=== PATIENT | female | born 1955 | race Caucasian/White ===

== ENCOUNTER 2020-02-04 11:07 | Outpatient (REF) | payer MEDICARE, SELFPAY ==
[2020-02-04 13:28] LABS: Estimated Average Glucose 140 mg/dL; Hemoglobin A1c % 6.5 %
[2020-02-04 13:47] LABS: Alanine Aminotransferase 9 U/L (0-31); Anion Gap 10 (12-20); Aspartate Amino Transferase 17 U/L (5-31); Blood Urea Nitrogen 22 mg/dL (9-16); Calcium 8.8 mg/dL (8.4-10.2); Carbon Dioxide 32 mmol/L (22-29); Chloride 105 mmol/L (96-108); Cholesterol 167 mg/dL; Estimated Glomerular Filt Rate > 60; Glucose Fasting 67 mg/dL (60-99); HDL Cholesterol 77 mg/dL; LDL Cholesterol Calculated 80 mg/dl; Potassium 4.4 mmol/l (3.3-5.1); Sodium 143 mmol/L (135-145); Triglycerides 50 mg/dL
[2020-02-04 14:08] LABS: Free T4 (Free Thyroxine) 0.95 ng/dL (0.71-1.85); Thyroid Stimulating Hormone 2.55 mIU/mL (0.32-4.0); Vitamin D 25-OH Total 41.6 ng/mL (>30)
[2020-02-04 14:12] LABS: Microalbumin Urine < 5.0 mg/L
== END 2020-02-04 11:08 | disposition home or self-care (01) ==
LOC: HO.LAB 11:07
PROVIDERS: PCP Internal Medicine; Visit Provider Internal Medicine
DX: E03.9 Hypothyroidism, unspecified (principal); E78.5 Hyperlipidemia, unspecified; M85.80 Other specified disorders of bone density and structure, unspecified site; E10.9 Type 1 diabetes mellitus without complications
CPT/HCPCS: 80048; 80061; 82043; 82306; 83036; 84439; 84443; 84450; 84460

== ENCOUNTER 2020-06-22 16:47 | Outpatient (REF) | payer MEDICARE, SELFPAY ==
[2020-06-22 18:29] LABS: Estimated Average Glucose 148 mg/dL; Hemoglobin A1c % 6.8 %
== END 2020-06-22 16:48 | disposition home or self-care (01) ==
LOC: HO.LABR 16:47
PROVIDERS: PCP Internal Medicine; Visit Provider Pediatrics
DX: E10.65 Type 1 diabetes mellitus with hyperglycemia (principal)
CPT/HCPCS: 36415; 83036

== ENCOUNTER 2020-08-26 10:31 | Outpatient (REF) | payer MEDICARE, SELFPAY ==
[2020-08-26 13:29] LABS: Alanine Aminotransferase 12 U/L (0-31); Anion Gap 10 (12-20); Aspartate Amino Transferase 17 U/L (5-31); Blood Urea Nitrogen 16 mg/dL (9-16); Calcium 8.8 mg/dL (8.4-10.2); Carbon Dioxide 30 mmol/L (22-29); Chloride 106 mmol/L (96-108); Cholesterol 156 mg/dL; Estimated Glomerular Filt Rate > 60; Glucose Fasting 99 mg/dL (60-99); HDL Cholesterol 74 mg/dL; LDL Cholesterol Calculated 76 mg/dl; Potassium 4.3 mmol/L (3.3-5.1); Sodium 142 mmol/L (135-145); Triglycerides 31 mg/dL
[2020-08-26 13:48] LABS: Free T4 (Free Thyroxine) 0.98 ng/dL (0.71-1.85); Thyroid Stimulating Hormone 1.31 uIU/mL (0.32-4.0); Vitamin D 25-OH Total 36.6 ng/mL (>30)
== END 2020-08-26 10:32 | disposition home or self-care (01) ==
LOC: HO.LAB 10:31
PROVIDERS: PCP Internal Medicine; Visit Provider Internal Medicine
DX: E03.9 Hypothyroidism, unspecified (principal); E78.5 Hyperlipidemia, unspecified; M85.88 Other specified disorders of bone density and structure, other site; I10 Essential (primary) hypertension; Z78.0 Asymptomatic menopausal state
CPT/HCPCS: 36415; 80048; 80061; 82306; 84439; 84443; 84450; 84460

== ENCOUNTER 2020-11-19 14:05 | Outpatient (REF) | payer MEDICARE, SELFPAY ==
[2020-11-19 14:52] LABS: Estimated Average Glucose 146 mg/dL; Hemoglobin A1c % 6.7 %
== END 2020-11-19 14:06 | disposition home or self-care (01) ==
LOC: HO.LABR 14:05
PROVIDERS: PCP Internal Medicine; Visit Provider Pediatrics
DX: E10.65 Type 1 diabetes mellitus with hyperglycemia (principal)
CPT/HCPCS: 36415; 83036

== ENCOUNTER 2021-03-31 09:15 | Outpatient (REF) | payer MEDICARE, SELFPAY ==
[2021-03-31 09:32] LABS: MANUAL DIFF FLAG NO
[2021-03-31 09:53] LABS: Basophils Percent Auto 0.7 % (0-2); Eosinophils Absolute Auto 0.1 X10*3/uL (0.0-0.4); Eosinophils Percent Auto 2.3 % (0-4); Hematocrit 44.1 % (37.0-47.0); Hemoglobin 14.4 g/dl (12.0-16.0); Lymphocytes Absolute Auto 1.6 X10*3/uL (1.2-4.9); Lymphocytes Percent Auto 35.2 % (20-40); Mean Corpuscular HGB Conc 32.7 g/dl (31.0-35.0); Mean Corpuscular Hemoglobin 31.6 pg (27.0-33.0); Mean Corpuscular Volume 96.9 fL (80.0-98.0); Mean Platelet Volume 10.8 fL (9.4-12.3); Monocytes Absolute Auto 0.4 X10*3/uL (0.1-1.2); Monocytes Percent Auto 9.3 % (2-11); Neutrophils Absolute Auto 2.3 x10*3/uL (2.0-8.3); Neutrophils Percent Auto 52.5 % (45-73); Platelet Count 264 X10*3/uL (160-400); Red Blood Count 4.55 X10*6/uL (4.20-5.50); Red Cell Distribution Width 13.2 % (11.0-16.0); White Blood Count 4.4 X10*3/uL (4.8-10.8)
[2021-03-31 10:09] LABS: Estimated Average Glucose 154 mg/dL
[2021-03-31 10:30] LABS: Alanine Aminotransferase 12 U/L (0-31); Anion Gap 14 (12-20); Aspartate Amino Transferase 19 U/L (5-31); Blood Urea Nitrogen 15 mg/dL (9-16); Calcium 9.3 mg/dL (8.4-10.2); Carbon Dioxide 29 mmol/L (22-29); Chloride 104 mmol/L (96-108); Cholesterol 174 mg/dL; Estimated Glomerular Filt Rate > 60; Glucose Fasting 105 mg/dL (60-99); HDL Cholesterol 76 mg/dL; LDL Cholesterol Calculated 87 mg/dl; Potassium 4.6 mmol/L (3.3-5.1); Sodium 142 mmol/L (135-145); Triglycerides 59 mg/dL
[2021-03-31 10:41] LABS: Free T4 (Free Thyroxine) 1.03 ng/dL (0.71-1.85); Thyroid Stimulating Hormone 4.19 uIU/mL (0.32-4.0); Vitamin D 25-OH Total 34.5 ng/mL (>30)
[2021-03-31 10:59] LABS: Creatinine Urine 81.31 mg/dL; Microalbum/Creatinine Ratio Ur 12.2 ug/mg cr
== END 2021-03-31 09:16 | disposition home or self-care (01) ==
LOC: HO.LAB 09:15
PROVIDERS: Referring Provider Pediatrics; Visit Provider Internal Medicine
DX: E10.649 Type 1 diabetes mellitus with hypoglycemia without coma (principal); E03.9 Hypothyroidism, unspecified; E78.5 Hyperlipidemia, unspecified; M85.88 Other specified disorders of bone density and structure, other site; I10 Essential (primary) hypertension; Z78.0 Asymptomatic menopausal state
CPT/HCPCS: 36415; 80048; 80061; 82043; 82306; 83036; 84439; 84443; 84450; 84460; 85025

== ENCOUNTER 2021-08-31 13:25 | Outpatient (REF) | payer MEDICARE, SELFPAY ==
[2021-08-31 16:54] LABS: Estimated Average Glucose 137 mg/dL; Hemoglobin A1c % 6.4 %
== END 2021-08-31 13:26 | disposition home or self-care (01) ==
LOC: HO.HMGCLDS 13:25
PROVIDERS: PCP Internal Medicine; Visit Provider Pediatrics
DX: E10.649 Type 1 diabetes mellitus with hypoglycemia without coma (principal)
CPT/HCPCS: 36415; 83036

== ENCOUNTER 2021-09-15 09:51 | Outpatient (REF) | payer MEDICARE, SELFPAY ==
[2021-09-15 12:18] LABS: Alanine Aminotransferase 11 U/L (0-31); Anion Gap 10 (12-20); Aspartate Amino Transferase 17 U/L (5-31); Blood Urea Nitrogen 10 mg/dL (9-16); Calcium 9.1 mg/dL (8.4-10.2); Carbon Dioxide 31 mmol/L (22-29); Chloride 104 mmol/L (96-108); Cholesterol 164 mg/dL; Estimated Glomerular Filt Rate > 60; Glucose Fasting 90 mg/dL (60-99); HDL Cholesterol 72 mg/dL; LDL Cholesterol Calculated 85 mg/dl; Potassium 4.3 mmol/L (3.3-5.1); Sodium 141 mmol/L (135-145); Triglycerides 36 mg/dL
[2021-09-15 12:30] LABS: Free T4 (Free Thyroxine) 1.21 ng/dL (0.71-1.85); Vitamin D 25-OH Total 34.5 ng/mL (>30)
[2021-09-15 13:32] LABS: Creatinine Urine 49.44 mg/dL; Microalbumin Urine < 5.0 mg/L
== END 2021-09-15 09:52 | disposition home or self-care (01) ==
LOC: HO.LAB 09:51
PROVIDERS: PCP Internal Medicine; Referring Provider Pediatrics; Visit Provider Internal Medicine
DX: E03.9 Hypothyroidism, unspecified (principal); E10.9 Type 1 diabetes mellitus without complications; E78.5 Hyperlipidemia, unspecified; M85.88 Other specified disorders of bone density and structure, other site; Z78.0 Asymptomatic menopausal state
CPT/HCPCS: 36415; 80048; 80061; 82043; 82306; 84439; 84443; 84450; 84460

== ENCOUNTER 2022-01-09 16:27 | Outpatient (REF) | payer MEDICARE, SELFPAY ==
[2022-01-09 17:56] LABS: Estimated Average Glucose 134 mg/dL; Hemoglobin A1c % 6.3 %
== END 2022-01-09 16:28 | disposition home or self-care (01) ==
LOC: HO.LABR 16:27
PROVIDERS: PCP Internal Medicine; Visit Provider Pediatrics
DX: E10.649 Type 1 diabetes mellitus with hypoglycemia without coma (principal)
CPT/HCPCS: 36415; 83036

== ENCOUNTER 2022-03-30 11:17 | Outpatient (REF) | payer MEDICARE, SELFPAY ==
[2022-03-30 13:41] LABS: Alanine Aminotransferase 13 U/L (0-31); Anion Gap 10 (12-20); Aspartate Amino Transferase 19 U/L (5-31); Blood Urea Nitrogen 18 mg/dL (9-16); Calcium 9.2 mg/dL (8.4-10.2); Carbon Dioxide 31 mmol/L (22-29); Chloride 103 mmol/L (96-108); Cholesterol 186 mg/dL; Estimated Glomerular Filt Rate > 60; Glucose Fasting 108 mg/dL (60-99); HDL Cholesterol 85 mg/dL; LDL Cholesterol Calculated 91 mg/dl; Potassium 4.4 mmol/L (3.3-5.1); Sodium 140 mmol/L (135-145); Thyroid Stimulating Hormone 2.56 uIU/mL (0.32-4.0); Triglycerides 53 mg/dL
== END 2022-03-30 11:18 | disposition home or self-care (01) ==
LOC: HO.LAB 11:17
PROVIDERS: PCP Internal Medicine; Visit Provider Internal Medicine
DX: E03.9 Hypothyroidism, unspecified (principal); E78.5 Hyperlipidemia, unspecified; E10.9 Type 1 diabetes mellitus without complications
CPT/HCPCS: 36415; 80048; 80061; 84439; 84443; 84450; 84460

== ENCOUNTER 2022-04-27 07:51 | Outpatient (REF) | payer MEDICARE, SELFPAY ==
--- NOTE | 2022-04-27 07:58 | EMG_ITS ---
Right median and ulnar motor and sensory studies were performed. Right radial sensory study was performed and paraspinal muscles were tested with a needle. IMPRESSION: 1. 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 2. Mild right ulnar neuropathy across cubital tunnel. 3. Right Ajay Sherry anastomosis, a normal variant. MD GERALDO Fitzgerald/KENNETH / [id number]
== END 2022-04-27 07:52 | disposition home or self-care (01) ==
LOC: HO.NEURO 07:51
PROVIDERS: PCP Internal Medicine; Visit Provider Internal Medicine
DX: M79.641 Pain in right hand (principal); M79.642 Pain in left hand
CPT/HCPCS: 95886; 95909

== ENCOUNTER 2022-04-27 08:27 | Outpatient (REF) | payer MEDICARE, SELFPAY ==
[2022-04-27 10:56] LABS: Estimated Average Glucose 157 mg/dL; Hemoglobin A1c % 7.1 %
== END 2022-04-27 08:28 | disposition home or self-care (01) ==
LOC: HO.LAB 08:27
PROVIDERS: PCP Internal Medicine; Visit Provider Pediatrics
DX: E10.9 Type 1 diabetes mellitus without complications (principal)
CPT/HCPCS: 36415; 83036

== ENCOUNTER 2022-08-18 12:24 | Outpatient (REF) | payer MEDICARE, SELFPAY ==
[2022-08-18 14:26] LABS: Estimated Average Glucose 151 mg/dL; Hemoglobin A1c % 6.9 %
== END 2022-08-18 12:25 | disposition home or self-care (01) ==
LOC: HO.HMGCLDS 12:24
PROVIDERS: PCP Internal Medicine; Visit Provider Pediatrics
DX: R10.9 Unspecified abdominal pain (principal)
CPT/HCPCS: 36415; 83036

== ENCOUNTER 2022-09-18 11:15 | Outpatient (REF) | payer MEDICARE, SELFPAY ==
[2022-09-18 14:49] LABS: Alanine Aminotransferase 12 U/L (0-31); Aspartate Amino Transferase 18 U/L (5-31); Cholesterol 163 mg/dL; HDL Cholesterol 70 mg/dL; LDL Cholesterol Calculated 85 mg/dl; Triglycerides 40 mg/dL
[2022-09-18 14:50] LABS: Vitamin D 25-OH Total 51.4 ng/mL (>30)
== END 2022-09-18 11:16 | disposition home or self-care (01) ==
LOC: HO.HMGCLDS 11:15
PROVIDERS: PCP Internal Medicine; Visit Provider Internal Medicine
DX: E78.5 Hyperlipidemia, unspecified (principal); M85.88 Other specified disorders of bone density and structure, other site; E03.9 Hypothyroidism, unspecified; Z78.0 Asymptomatic menopausal state
CPT/HCPCS: 36415; 80061; 82306; 84443; 84450; 84460

== ENCOUNTER 2022-09-18 11:52 | Outpatient (REF) | payer MEDICARE, SELFPAY | END 2022-09-18 11:53 | disposition home or self-care (01) | LOC: HO.LAB 11:52 | PROVIDERS: Visit Provider Internal Medicine | DX: Z13.89 Encounter for screening for other disorder (principal) ==

== ENCOUNTER 2022-09-21 12:59 | Outpatient (REF) | payer MEDICARE, SELFPAY ==
[2022-09-21 15:09] LABS: Creatinine Urine 74.48 mg/dL; Microalbumin Urine < 5.0 mg/L
== END 2022-09-21 13:00 | disposition home or self-care (01) ==
LOC: HO.HMGCLDS 12:59
PROVIDERS: PCP Internal Medicine; Visit Provider Internal Medicine
DX: E10.9 Type 1 diabetes mellitus without complications (principal)
CPT/HCPCS: 82043

== ENCOUNTER 2022-12-27 14:29 | Outpatient (REF) | payer MEDICARE, SELFPAY ==
[2022-12-27 15:37] LABS: Estimated Average Glucose 134 mg/dL; Hemoglobin A1c % 6.3 % (<6.0)
== END 2022-12-27 14:30 | disposition home or self-care (01) ==
LOC: HO.LAB 14:29
PROVIDERS: PCP Internal Medicine; Visit Provider Pediatrics
DX: E10.9 Type 1 diabetes mellitus without complications (principal)
CPT/HCPCS: 36415; 83036

== ENCOUNTER 2023-03-30 06:05 | Outpatient (REF) | payer MEDICARE, SELFPAY ==
[2023-03-30 07:40] LABS: Alanine Aminotransferase 12 U/L (0-31); Albumin Level 4.4 g/dL (3.5-5.0); Alkaline Phosphatase 59 U/L (39-117); Anion Gap 11 (12-20); Aspartate Amino Transferase 20 U/L (5-31); Bilirubin Total 1.2 mg/dL (0.0-1.0); Blood Urea Nitrogen 17 mg/dL (9-16); Calcium 9.2 mg/dL (8.4-10.2); Carbon Dioxide 31 mmol/L (22-29); Chloride 104 mmol/L (96-108); Cholesterol 183 mg/dL (<200); Estimated Glomerular Filt Rate > 60; Glucose Fasting 93 mg/dL (60-99); HDL Cholesterol 82 mg/dL (>40); LDL Cholesterol Calculated 90 mg/dL (<100); Potassium 4.1 mmol/L (3.3-5.1); Sodium 142 mmol/L (135-145); Total Protein 7.6 g/dL (6.5-8.0); Triglycerides 58 mg/dL (<150)
[2023-03-30 08:00] LABS: Free T4 (Free Thyroxine) 0.93 ng/dL (0.71-1.85); Thyroid Stimulating Hormone 6.51 uIU/mL (0.32-4.0); Vitamin D 25-OH Total 47.5 ng/mL (>30)
== END 2023-03-30 06:06 | disposition home or self-care (01) ==
LOC: HO.LAB 06:05
PROVIDERS: PCP Internal Medicine; Visit Provider Internal Medicine
DX: E10.9 Type 1 diabetes mellitus without complications (principal); M85.88 Other specified disorders of bone density and structure, other site; E78.5 Hyperlipidemia, unspecified; E03.9 Hypothyroidism, unspecified; Z78.0 Asymptomatic menopausal state
CPT/HCPCS: 36415; 80053; 80061; 82306; 84439; 84443

== ENCOUNTER 2023-04-03 10:41 | Outpatient (AMB) | payer MEDICARE, SELFPAY ==
[2023-04-03 11:11] VITALS: BP 110/80; PULSE 71; O2SAT 98; BMI 28.8
--- NOTE | 2023-04-03 11:11 | A.OFFPC_ITS ---
Vital Signs 04/03/23 11:11 Height 5 ft 6.5 in Weight 181 lb 6 oz BMI 28.8 BP 110/80 Blood Pressure Location Lt brachial Position Sitting Pulse 71 Pulse Source Pulse Oximeter Pulse Oximetry (%) 98 Oxygen Delivery Method Room Air Intake Visit Reasons: 6m follow up lipids,thyroid Intake Note: Pt is here to follow up for her lab results Allergies gentamicin Adverse Reaction (Verified 04/03/23 11:23) rash Medication List - Last Reconciled 04/03/23 by Bushra Patino MD ascorbic acid (vitamin C) mg PO calcium carbonate 500 mg PO DAILY cholecalciferol (vitamin D3) 25 mcg PO DAILY clobetasol 0.05% 1 appl topical BID insulin glargine (Lantus U-100 Insulin) 13 units subcut every evening; insulin lispro (Humalog KwikPen (U-100) Insulin) subcut levothyroxine 50 mcg PO Take 1 tab 5 days per week, 1.5 tabs 2 days per week; lutein 20 mg PO DAILY multivitamin 1 tab PO DAILY omega-3 fatty acids (Fish Oil Concentrate) 1,000 mg PO DAILY pravastatin 80 mg PO BEDTIME vhlntcb-zfgt-tikrj-oreg-capryl 100 mg-150 mg- 50 mg-150 mg caps PO Tobacco use date assessed: 04/03/23 Fall risk assessment: No Falls in past year Last assessed Fall Risk: 04/03/23 Dental Screening Dental Screen Date: 04/03/23 Did you have a dental visit in the last 12 months?: Yes Did you have a dental problem in the last 6 months where you did not have access to dental care?: No Was dental information given to patient?: Patient has dentist HPI 6m follow up lipids,thyroid HPI Details 67-year-old lady with diabetes mellitus, currently followed by endocrine clinic at [facility], here today for follow-up on her hyperlipidemia and hypothyroidism. Has been compliant with taking medications, feels well with no new complaints at present time. [facility] Medical History Ulnar neuropathy at elbow of right upper extremity Right median nerve neuropathy Bilateral hand pain Menopause Osteoarthritis of right hip Osteoarthritis of both knees Psoriasis Internal hemorrhoids Sigmoid diverticulosis Acquired hypothyroidism Osteopenia of lumbar spine Dyslipidemia Diabetes mellitus type 1, controlled Surgical History History of carpal tunnel surgery of right wrist History of hip replacement History of colonoscopy Family History Father Kidney stones Mother Bladder cancer CAD (coronary artery disease) Kidney stones CVD (cardiovascular disease) Daughter Cancer of thyroid Brother No problems noted. Daughter No problems noted. Daughter No problems noted. Sister No problems noted. Sister No problems noted. Sister No problems noted. Social History Housing: House Alcohol intake: current Patient Tobacco Use Status: Former Tobacco user Years Smoked: 2 yrs e-Cigarette/Vaping Use: Never Used service: No Current occupational status: retired Cognitive needs: No Hearing needs: No Vision needs: No Questionnaire PHQ-9 Over the last 2 weeks, how often have you been bothered by any of the following problems? Depression Screening Interpretation: Negative Depression Screening Done: Yes Source: Developed by Drs. Logan Larios, Liza Hagen, Marshall Chan and colleagues, with an educational julianne from [employer]. Thrive Questionnaire Date Thrive assessed: 09/21/22 MAUREEN-7 AMB Questionnaire MAUREEN-7 Date MAUREEN - 7 assessed: 09/20/21 Source: Developed by Drs. Logan Larios, Liza Hagen, Marshall Chan and colleagues, with an educational julianne from [employer]. Review of Systems Const Denies fatigue, Denies fever(s), Denies headache(s) and Denies weakness Eyes Details: 02/05/[address] Luke Ryan - no retinopathy coma no glaucoma Denies change in vision ENT Denies dizziness, Denies headache(s), Denies nasal congestion, Denies nasal discharge and Denies sore throat Card Denies chest pain, Denies lightheadedness, Denies palpitations and Denies dyspnea Resp Denies chest congestion, Denies cough, Denies dyspnea and Denies wheezing GI Denies abdominal pain, Denies change in bowel habits and Denies heartburn Denies urinary frequency, Denies dysuria and Denies urinary urgency Musc Reports as per HPI, Denies joint swelling and Reports stiffness Skin/Breast Denies lesions and Denies rash Neuro Denies dizziness, Denies headache(s) and Denies weakness Endo Details: Hemoglobin A1c 6.3 - 12/27/[address] Sandoval for diabetic foot exam in 2021, no neuropathy, positive hammertoe Denies fatigue, Denies polydipsia, Denies polyuria and Denies palpitations Mario/Lymph Denies easy bruising Aller/Immun Denies seasonal rhinorrhea and Denies wheezing Physical exam (Primary Care) Vital Signs: Last Vital Signs Pulse 71 04/03/23 11:11 BP 110/80 04/03/23 11:11 Pulse Ox 98 04/03/23 11:11 Oxygen Delivery Method Room Air 04/03/23 11:11 BMI result Body Mass Index 28.8 Tobacco/Smoking Status: Tobacco use Status Tobacco use date assessed 04/03/23 04/03/23 11:17 Patient Tobacco Use Status Former Tobacco user 04/03/23 11:11 e-Cigarette/Vaping Use Never Used 04/03/23 11:11 Depression Screening Interpretation: Negative Thrive Assessment: Date of Thrive Assessment Date Thrive assessed 09/21/22 04/03/23 11:11 Const General: comfortable and no acute distress Orientation/consciousness: patient oriented x3 HENMT Ears: external ears normal General nose exam: Normal external nose present and No nasal discharge present Mouth: moist mucous membranes Throat: Yes posterior oropharynx normal Eyes General: appearance normal, both eyes and all related structures Conjunctivae: conjunctivae normal Pupils: Equal, round and reactive pupils present EOM: EOMs intact bilaterally Neck Other: Thyroid gland nonpalpable, nontender to palpation Neck: Yes full ROM, Yes no lymphadenopathy and Yes supple Resp Effort & Inspection: normal respiratory effort and able to speak in complete sentences Auscultation: clear to auscultation bilaterally Cardio Rate: regular rate Rhythm: regular rhythm Heart sounds: S1 normal heart sound present and S2 normal heart sound present GI Palpation (GI): Soft to palpation and nontender Auscultation: normal bowel sounds Neuro General: patient oriented x3, gait normal, tone normal, moves all extremities, Normal light touch and pain sensation and no focal motor deficits Cranial nerves: Yes Equal, round and reactive pupils present Cognition (Neuro): normal cognition Gait exam (Neuro): Normal gait present Motor exam (neuro): 5/5 motor strength present throughout Extrem Other: Positive Tinel sign on the right, negative Phalen's General: Yes full ROM, Yes no joint enlargement, Yes no pedal edema and Yes normal gait Results Reviewed Results Reviewed: NTERED: 03/30/23 ANANYA CONNER: ORDERED: CMP Fast, Lipid Panel, Vitamin D 25-OH, Free T4, TSH Test Result Flag Reference Site Sodium 142 135-145 mmol/L Potassium 4.1 3.3-5.1 mmol/L CL 104 96-108 mmol/L CO2 31 H 22-29 mmol/L Gap 11 L 12-20 BUN 17 H 9-16 mg/dL Creat 0.82 0.5-1.4 mg/dL EGFR > 60 NOTE: For -Namibian individuals, multiply the result by 1.210. Chronic Kidney Disease: Estimated GFR < 60 mL/min/1.73m2 Severe Kidney Disease: Estimated GFR < 15 mL/min/1.73m2 FBS 93 60-99 mg/dL CA 9.2 8.4-10.2 mg/dL Total Bili 1.2 H 0.0-1.0 mg/dL AST (GOT) 20 5-31 U/L ALT (GPT) 12 0-31 U/L Protein, Total 7.6 6.5-8.0 g/dL Alb 4.4 3.5-5.0 g/dL Triglyceride 58 <150 mg/dL Desirable Triglyceride: less than 150 mg/dL Borderline High Triglyceride 150-199 mg/dL High Triglyceride: 200-499 mg/dL Very High Triglyceride: greater than or equal to 5OO mg/dL Cholesterol 183 <200 mg/dL Desirable Cholesterol: less than 200 mg/dL Borderline High Cholesterol: 200-239 mg/dL High Cholesterol: greater than 239 mg/dL LDL Calculated 90 <100 mg/dL Desirable LDL: less than 100 mg/dL Near Optimal/Above Optimal LDL: 110-129 mg/dL Borderline High LDL: 130-159 mg/dL High LDL: 160-189 mg/dL Very High LDL: greater than or equal to 190 mg/dL HDL 82 >40 mg/dL Desirable HDL: greater than 40 mg/dL Note: This HDL assay may give artificially low results in patients with liver disease. Alk Phos 59 39-117 U/L Vit D 25-OH Tot 47.5 >30 ng/mL Health Based Reference Values* < 20 ng/mL Deficient 20-30 ng/mL Insufficient > 30 ng/mL Sufficient *Holick MF. N Engl J Med. 2007;357:266-280 Care must be taken in interpreting Vitamin D results from different laboratories and methodologies. Published data demonstrated that results from patients undergoing hemodialysis may show a negative bias when tested with various automated 25-OH vitamin D assays when compared to LC-MS/MS. When testing samples from patients whose predominant form of Vitamin D is Vitamin D2, such as patients receiving Vitamin D2 supplementation, results that are subtherapeutic should be confirmed with another method such as LC-MS/MS. Free T4 0.93 0.71-1.85 ng/dL TSH 3rd Gen. 6.51 H 0.32-4.0 uIU/mL Note: A sustained TSH level above 2.5 uIU/mL may warrant further investigation. TSH 3rd Generation ([facility]) Assessment and Plan Assessment & Plan (1) Acquired hypothyroidism: Code(s): E03.9 - Hypothyroidism, unspecified Plan: TSH elevated with free T4 low normal, Increase levothyroxine dose to 50 al ternating with 7.5 mg every other day and repeat another TSH and free T4 in 2 months (2) Dyslipidemia: Code(s): E78.5 - Hyperlipidemia, unspecified Plan: Reviewed recent fasting lipid profile with patient with levels within normal limits . Continue with [place] 3 fatty acid supplements and pravastatin , in addition to adherence to low-cholesterol diet and regular exercise, at least 30 minutes 3 to 4 times a week. Advised patient to make healthy food choices, eat more fruits, vegetables, whole grains, wild caught fish and low-fat dairy. Limit amount of meat and fried or fatty food products, as well as processed foods and fast foods. Orders: Orders Free T4 (Free Thyroxine) 05/17/23 E03.9 - Hypothyroidism, unspecified Thyroid Stimulating Hormone 05/17/23 E03.9 - Hypothyroidism, unspecified Patient Instructions: Increase levothyroxine dose to 50 alternating with 7.5 mg every other day and repeat another TSH and free T4 in 2 months Coding Level of Care Code Est Pt Level 3 (49965) Diagnoses Acquired hypothyroidism E03.9 Dyslipidemia E78.5
== END 2023-04-03 12:01 | disposition home or self-care (01) ==
PROVIDERS: PCP Internal Medicine; Visit Provider Internal Medicine
DX: E03.9 Hypothyroidism, unspecified (principal); E78.5 Hyperlipidemia, unspecified
CPT/HCPCS: 99213

== ENCOUNTER 2023-09-20 11:15 | Outpatient (REF) | payer MEDICARE, SELFPAY ==
[2023-09-20 12:33] LABS: Alanine Aminotransferase 12 U/L (0-31); Aspartate Amino Transferase 18 U/L (5-31); Cholesterol 175 mg/dL (<200); HDL Cholesterol 76 mg/dL (>40); LDL Cholesterol Calculated 90 mg/dL (<100); Triglycerides 45 mg/dL (<150)
[2023-09-20 12:54] LABS: Free T4 (Free Thyroxine) 0.91 ng/dL (0.71-1.85); Vitamin D 25-OH Total 52.4 ng/mL (>30)
== END 2023-09-20 11:16 | disposition home or self-care (01) ==
LOC: HO.LAB 11:15
PROVIDERS: PCP Internal Medicine; Visit Provider Internal Medicine
DX: E03.9 Hypothyroidism, unspecified (principal); E78.5 Hyperlipidemia, unspecified; M85.88 Other specified disorders of bone density and structure, other site; Z78.0 Asymptomatic menopausal state
CPT/HCPCS: 36415; 80061; 82306; 84439; 84443; 84450; 84460

== ENCOUNTER 2023-09-24 12:07 | Outpatient (AMB) | payer MEDICARE, SELFPAY ==
--- NOTE | 2023-09-24 12:13 | A.OFFPC_ITS ---
Vital Signs 09/24/23 12:30 Height 5 ft 6.5 in Weight 173 lb BMI 27.5 BP 118/68 Blood Pressure Location Lt brachial Position Sitting Pulse 73 Pulse Source Pulse Oximeter Pulse Oximetry (%) 96 Oxygen Delivery Method Room Air Intake Visit Reasons: PE - see comments Intake Note: Pt is here today for her PE: Last mammogram 04/26/23, bone density 08/31/22, 10/07/18 Allergies gentamicin Adverse Reaction (Verified 09/24/23 12:51) rash Medication List - Last Reconciled 09/24/23 by Bushra Patino MD ascorbic acid (vitamin C) mg PO calcium carbonate 500 mg PO DAILY cholecalciferol (vitamin D3) 25 mcg PO DAILY clobetasol 0.05% 1 appl topical BID insulin glargine (Lantus U-100 Insulin) 13 units subcut every evening; insulin lispro (Humalog KwikPen (U-100) Insulin) subcut levothyroxine 50 mcg PO Take 1 tab 3 days per week, 1.5 tabs 4 days per week; lutein 20 mg PO DAILY multivitamin 1 tab PO DAILY omega-3 fatty acids (Fish Oil Concentrate) 1,000 mg PO DAILY pravastatin 80 mg PO BEDTIME hqvkfwze-mcnu-gtuqd-oreg-capry 100 mg-150 mg- 50 mg-150 mg caps PO Tobacco use date assessed: 09/24/23 Fall risk assessment: No Falls in past year Last assessed Fall Risk: 09/24/23 Dental Screening Dental Screen Date: 09/24/23 Did you have a dental visit in the last 12 months?: Yes Did you have a dental problem in the last 6 months where you did not have access to dental care?: No Was dental information given to patient?: Patient has dentist HPI PE - see comments HPI Details 68-year-old lady here today for her phys ical exam. She had her last mammogram 04/26/23, bone density 08/31/22, both of which came back with normal findings. Up-to-date with her screening colonoscopy done by Dr. Hardwick in 2018, with normal findings, repeat due again in 2028. She is diabetes mellitus currently followed by [facility], Dr. Grijalva. Has hypothyroidism currently on levothyroxine and hyperlipidemia currently on pravastatin with recent fasting labs showing thyroid and lipid levels within normal limits. 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 Daughter No problems noted. Daughter No problems noted. Sister No problems noted. Sister No problems noted. Sister No problems noted. Social History Housing: House Alcohol intake: current Patient Tobacco Use Status: Former Tobacco user Years Smoked: 2 yrs e-Cigarette/Vaping Use: Never Used service: No Current occupational status: retired Cognitive needs: No Hearing needs: No Vision needs: No Questionnaire PHQ-9 Over the last 2 weeks, how often have you been bothered by any of the following problems? 1. Little interest or pleasure in doing things: not at all 2. Feeling down, depressed, or hopeless: not at all 3. Trouble falling or staying asleep, or sleeping too much: not at all 4. Feeling tired or having little energy: not at all 5. Poor appetite or overeating: not at all 6. Feeling bad about yourself - or that you are a failure or have let yourself or your family down: not at all 7. Trouble concentrating on things, such as reading the newspaper or watching television: not at all 8. Moving or speaking so slowly that other people could have noticed. Or the opposite - being so fidgety or restless that you have been moving around a lot more than usual: not at all 9. Thoughts that you would be better off or of hurting yourself in some way: not at all Total score: 0 Depression Screening Interpretation: Negative Depression Screening Done: Yes 06079 - PHQ-9 Billing: Yes Source: Developed by Drs. Logan Larios, Liza Hagen, Marshall Chan and colleagues, with an educational julianne from [employer]. Thrive Questionnaire Date Thrive assessed: 09/24/23 I am a: Patient What is your living situation today?: I have a steady place to live Within the past 12 months, did the food you bought not last and you didn't have the money to get more?: Never true Within the past 12 months, did you worry whether your food would run out before you got money to buy more?: Never true Do you have trouble paying for medicines?: No Do you have trouble getting transportation to medical appointments?: No Do you have trouble paying your heating and electricity bill?: No Do you have trouble taking care of your child, family member or friend?: No Do you have trouble with day-to-day activities such as bathing, preparing meals, shopping, managing finances, etc.?: No Are you currently unemployed and looking for a job?: No Are you interested in more education?: No Please select the resources that you would like help with: None THRIVE Score: 0 AUDIT C Alcohol Use Questionnaire (AUDIT-C) 1. How often do you have a drink containing alcohol?: 4 or more times a week 2. How many drinks containing alcohol do you have on a typical day when you are drinking?: 1 or 2 3. How often do you have six or more drinks on one occasion?: Never Total Score: 4 MAUREEN-7 AMB Questionnaire MAUREEN-7 Date MAUREEN - 7 assessed: 09/24/23 Feeling nervous, anxious, or on edge: 0 = Not at all Not being able to stop or control worryin = Not at all Worrying too much about different things: 0 = Not at all Trouble relaxin = Not at all Being so restless that it is hard to sit still: 0 = Not at all Becoming easily annoyed or irritable: 0 = Not at all Feeling afraid as if something awful might happen: 0 = Not at all Total MAUREEN-7 score (0-4 normal; 5-9 mild; 10-14 moderate; 15-21 severe): 0 Source: Developed by Liza Eldridge Kurt Kroenke and colleagues, with an educational julianne from [employer]. MAUREEN-7 Assessment Billing MAUREEN-7 Assessment Tool: MAUREEN-7 Assessment 18316 Review of Systems Const Denies fatigue, Denies fever(s), Denies headache(s) and Denies weakness Eyes Details: 02/05/[address] Luke Ryan - no retinopathy coma no glaucoma Denies change in vision ENT Denies dizziness, Denies headache(s), Denies nasal congestion, Denies nasal discharge and Denies sore throat Card Denies chest pain, Denies lightheadedness, Denies palpitations and Denies dyspnea Resp Denies chest congestion, Denies cough, Denies dyspnea and Denies wheezing GI Denies abdominal pain, Denies change in bowel habits and Denies heartburn Denies urinary frequency, Denies dysuria and Denies urinary urgency Musc Reports as per HPI, Denies joint swelling and Reports stiffness Skin/Breast Denies lesions and Denies rash Neuro Denies dizziness, Denies headache(s) and Denies weakness Endo Details: Hemoglobin A1c 6.3 - 12/27/[address] Sandoval for diabetic foot exam in 2021, no neuropathy, positive hammertoe Denies fatigue, Denies polydipsia, Denies polyuria and Denies palpitations Mario/Lymph Denies easy bruising Aller/Immun Denies seasonal rhinorrhea and Denies wheezing Physical exam (Primary Care) Vital Signs: Last Vital Signs Pulse 73 09/24/23 12:30 BP 118/68 09/24/23 12:30 Pulse Ox 96 09/24/23 12:30 Oxygen Delivery Method Room Air 09/24/23 12:30 BMI result Body Mass Index 27.5 Tobacco/Smoking Status: Tobacco use Status Tobacco use date assessed 09/24/23 09/24/23 12:36 Patient Tobacco Use Status Former Tobacco user 09/24/23 12:15 e-Cigarette/Vaping Use Never Used 09/24/23 12:15 PHQ-9: PHQ-9 Score PHQ-9: Total score 0 09/24/23 12:56 Depression Screening Interpretation: Negative Thrive Assessment: Date of Thrive Assessment Date Thrive assessed 09/24/23 09/24/23 12:37 Const General: comfortable and no acute distress Orientation/consciousness: patient oriented x3 HENMT Ears: external ears normal General nose exam: Normal external nose present and No nasal discharge present Mouth: moist mucous membranes Throat: Yes posterior oropharynx normal Eyes General: appearance normal, both eyes and all related structures Conjunctivae: conjunctivae normal Pupils: Equal, round and reactive pupils present EOM: EOMs intact bilaterally Neck Other: Thyroid gland nonpalpable, nontender to palpation Neck: Yes full ROM, Yes no lymphadenopathy and Yes supple Resp Effort & Inspection: normal respiratory effort and able to speak in complete sentences Auscultation: clear to auscultation bilaterally Cardio Rate: regular rate Rhythm: regular rhythm Heart sounds: S1 normal heart sound present and S2 normal heart sound present GI Palpation (GI): Soft to palpation and nontender Auscultation: normal bowel sounds General: Yes no CVA tenderness Back/Spine/Pelvis Back: no CVA tenderness and No back tenderness Skin General skin exam: no rashes or lesions noted Neuro General: patient oriented x3, gait normal, tone normal, moves all extremities, Normal light touch and pain sensation and no focal motor deficits Cranial nerves: Yes Equal, round and reactive pupils present Cognition (Neuro): normal cognition Gait exam (Neuro): Normal gait present Motor exam (neuro): 5/5 motor strength present throughout Extrem Other: Positive Tinel sign on the right, negative Phalen's General: Yes full ROM, Yes no joint enlargement, Yes no pedal edema and Yes normal gait Psych Appearance: grossly normal and well kempt Mental Status: mental status grossly normal Speech and movement: Normal speech and movement present Affect: normal affect Thought process: Normal thought process present Thought content: Normal thought content present Results Reviewed Results Reviewed: Name: Mary Kay Hester Age/Sex: 68/F : 1955 Unit#: [id number] Attend Dr: Bushra Patino MD Re09/20/23 Status: DEP REF Location: .LAB Disch: SPEC : [id number] ASHOK: 09/20/23 STATUS: COMP REQ : [id number] RECD: 09/20/[address]: Bushra Paitno MD COMP: 09/20/234 ENTERED: 09/20/[address]: ORDERED: AST, ALT, Lipid Panel, Vitamin D 25-OH, Free T4, TSH Test Result Flag Reference AST (GOT) 18 5-31 U/L ALT (GPT) 12 0-31 U/L Triglyceride 45 <150 mg/dL Desirable Triglyceride: less than 150 mg/dL Borderline High Triglyceride 150-199 mg/dL High Triglyceride: 200-499 mg/dL Very High Triglyceride: greater than or equal to 5OO mg/dL Cholesterol 175 <200 mg/dL Desirable Cholesterol: less than 200 mg/dL Borderline High Cholesterol: 200-239 mg/dL High Cholesterol: greater than 239 mg/dL LDL Calculated 90 <100 mg/dL Desirable LDL: less than 100 mg/dL Near Optimal/Above Optimal LDL: 110-129 mg/dL Borderline High LDL: 130-159 mg/dL High LDL: 160-189 mg/dL Very High LDL: greater than or equal to 190 mg/dL HDL 76 >40 mg/dL Desirable HDL: greater than 40 mg/dL Note: This HDL assay may give artificially low results in patients with liver disease. Vit D 25-OH Tot 52.4 >30 ng/mL Health Based Reference Values* < 20 ng/mL Deficient 20-30 ng/mL Insufficient > 30 ng/mL Sufficient *Luther LOMAX. N Engl J Med. 2007;357:266-280 Care must be taken in interpreting Vitamin D results from different laboratories and methodologies. Published data demonstrated that results from patients undergoing hemodialysis may show a negative bias when tested with various automated 25-OH vitamin D assays when compared to LC-MS/MS. When testing samples from patients whose predominant form of Vitamin D is Vitamin D2, such as patients receiving Vitamin D2 supplementation, results that are subtherapeutic should be confirmed with another method such as LC-MS/MS. Free T4 0.91 0.71-1.85 ng/dL TSH 3rd Gen. 2.70 0.32-4.0 uIU/mL Note: A sustained TSH level above 2.5 uIU/mL may warrant further investigation. TSH 3rd Generation ([facility]) Coding Level of Care Code Est Pt Prev Care >65y(86439) Diagnoses Annual visit for general adult medical examination with abnormal findings Z00.01 Dyslipidemia E78.5 Acquired hypothyroidism E03.9 Controlled diabetes mellitus type 1 without complications E10.9 Diabetes mellitus complication status: without complication Osteoarthritis of both knees M17.0 Psoriasis L40.9 Additional Codes MAUREEN-7 Assessment Billing - MAUREEN-7 Assessment Tool: MAUREEN-7 Assessment 36902 ([id number])
[2023-09-24 12:30] VITALS: BP 118/68; PULSE 73; O2SAT 96; BMI 27.5
== END 2023-09-24 13:35 | disposition home or self-care (01) ==
PROVIDERS: PCP Internal Medicine; Visit Provider Internal Medicine
DX: Z00.01 Encounter for general adult medical examination with abnormal findings (principal); E78.5 Hyperlipidemia, unspecified; E03.9 Hypothyroidism, unspecified; E10.9 Type 1 diabetes mellitus without complications; M17.0 Bilateral primary osteoarthritis of knee; L40.9 Psoriasis, unspecified
CPT/HCPCS: 99499

== ENCOUNTER 2024-03-31 11:02 | Outpatient (REF) | payer MEDICARE, SELFPAY ==
[2024-03-31 13:27] LABS: Alanine Aminotransferase 14 U/L (0-31); Anion Gap 9 (12-20); Aspartate Amino Transferase 23 U/L (5-31); Blood Urea Nitrogen 15 mg/dL (9-16); Calcium 9.4 mg/dL (8.4-10.2); Carbon Dioxide 34 mmol/L (22-29); Chloride 104 mmol/L (96-108); Cholesterol 171 mg/dL (<200); Estimated Glomerular Filt Rate > 60; Glucose Fasting 75 mg/dL (60-99); HDL Cholesterol 79 mg/dL (>40); LDL Cholesterol Calculated 83 mg/dL (<100); Sodium 143 mmol/L (135-145); Triglycerides 46 mg/dL (<150)
[2024-03-31 13:33] LABS: Free T4 (Free Thyroxine) 1.13 ng/dL (0.71-1.85); Thyroid Stimulating Hormone 3.62 uIU/mL (0.32-4.0); Vitamin D 25-OH Total 42.3 ng/mL (>30)
== END 2024-03-31 11:03 | disposition home or self-care (01) ==
LOC: HO.LAB 11:02
PROVIDERS: PCP Internal Medicine; Visit Provider Internal Medicine
DX: E78.5 Hyperlipidemia, unspecified (principal); E03.9 Hypothyroidism, unspecified
CPT/HCPCS: 36415; 80048; 80061; 82306; 84439; 84443; 84450; 84460

== ENCOUNTER 2024-04-01 10:40 | Outpatient (AMB) | payer MEDICARE, SELFPAY ==
[2024-04-01 11:01] VITALS: BP 130/82; PULSE 77; O2SAT 99; BMI 27.7
--- NOTE | 2024-04-01 11:01 | MHC.PC.OV ---
Vital Signs 04/01/24 11:01 Height 5 ft 6.5 in Weight 174 lb BMI 27.7 BP 130/82 Blood Pressure Location Rt brachial Position Sitting Pulse 77 Pulse Source Pulse Oximeter Pulse Oximetry (%) 99 Oxygen Delivery Method Room Air Intake Visit Reasons: 6 mo f/u Lipids, thyroid, labs - see comments Intake Note: Pt is here today for her f/y lipids,thyroid and labs Allergies gentamicin Adverse Reaction (Verified 04/01/24 11:09) rash Medication List - Last Reconciled 04/01/24 by Bushra Patino MD ascorbic acid (vitamin C) mg PO calcium carbonate 500 mg PO DAILY cholecalciferol (vitamin D3) 25 mcg PO DAILY clobetasol 0.05% 1 appl topical BID insulin glargine (Lantus U-100 Insulin) 13 units subcut every evening; insulin lispro (Humalog KwikPen (U-100) Insulin) subcut levothyroxine 50 mcg PO Take 1 tab 3 days per week, 1.5 tabs 4 days per week; lutein 20 mg PO DAILY multivitamin 1 tab PO DAILY omega-3 fatty acids (Fish Oil Concentrate) 1,000 mg PO DAILY pravastatin 80 mg PO BEDTIME Tobacco use date assessed: 09/24/23 Fall risk assessment: No Falls in past year Last assessed Fall Risk: 04/01/24 Dental Screening Dental Screen Date: 04/01/24 Did you have a dental visit in the last 12 months?: Yes Did you have a dental problem in the last 6 months where you did not have access to dental care?: Yes Was dental information given to patient?: Patient has dentist HPI 6 mo f/u Lipids, thyroid, labs - see comments HPI Details 68-year-old lady with history of diabetes mellitus currently followed by , here today for follow-up on her lipids and thyroid. Currently taking pravastatin 80 mg at bedtime and levothyroxine. However she states that she has not really been very compliant with her diet, but has been getting a lot of exercise. 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 Daughter No problems noted. Daughter No problems noted. Sister No problems noted. Sister No problems noted. Sister No problems noted. Social History Housing: House Alcohol intake: current Patient Tobacco Use Status: Former Tobacco user Years Smoked: 2 yrs e-Cigarette/Vaping Use: Never Used service: No Current occupational status: retired Cognitive needs: No Hearing needs: No Vision needs: No Questionnaire PHQ-9 Over the last 2 weeks, how often have you been bothered by any of the following problems? 1. Little interest or pleasure in doing things: not at all 2. Feeling down, depressed, or hopeless: not at all 3. Trouble falling or staying asleep, or sleeping too much: not at all 4. Feeling tired or having little energy: not at all 5. Poor appetite or overeating: not at all 6. Feeling bad about yourself - or that you are a failure or have let yourself or your family down: not at all 7. Trouble concentrating on things, such as reading the newspaper or watching television: not at all 8. Moving or speaking so slowly that other people could have noticed. Or the opposite - being so fidgety or restless that you have been moving around a lot more than usual: not at all 9. Thoughts that you would be better off or of hurting yourself in some way: not at all Total score: 0 Depression Screening Interpretation: Negative Depression Screening Done: Yes Source: Developed by Drs. Logan Larios, Liza Hagen, Marshall Chan and colleagues, with an educational julianne from [employer]. Thrive Questionnaire Date Thrive assessed: 09/24/23 I am a: Patient What is your living situation today?: I have a steady place to live Within the past 12 months, did the food you bought not last and you didn't have the money to get more?: Never true Within the past 12 months, did you worry whether your food would run out before you got money to buy more?: Never true Do you have trouble paying for medicines?: No Do you have trouble getting transportation to medical appointments?: No Do you have trouble paying your heating and electricity bill?: No Do you have trouble taking care of your child, family member or friend?: No Do you have trouble with day-to-day activities such as bathing, preparing meals, shopping, managing finances, etc.?: No Are you currently unemployed and looking for a job?: No Are you interested in more education?: No Please select the resources that you would like help with: None Currently or been in a relationship where the following occur: No concerns reported THRIVE Score: 0 AUDIT C Alcohol Use Questionnaire (AUDIT-C) 1. How often do you have a drink containing alcohol?: 4 or more times a week 2. How many drinks containing alcohol do you have on a typical day when you are drinking?: 1 or 2 3. How often do you have six or more drinks on one occasion?: Never Total Score: 4 MAUREEN-7 AMB Questionnaire MAUREEN-7 Date MAUREEN - 7 assessed: 09/24/23 Feeling nervous, anxious, or on edge: 0 = Not at all Not being able to stop or control worryin = Not at all Worrying too much about different things: 0 = Not at all Trouble relaxin = Not at all Being so restless that it is hard to sit still: 0 = Not at all Becoming easily annoyed or irritable: 0 = Not at all Feeling afraid as if something awful might happen: 0 = Not at all Total MAUREEN-7 score (0-4 normal; 5-9 mild; 10-14 moderate; 15-21 severe): 0 Source: Developed by Drs. Logan Larios, Liza Hagen, Marshall Chan and colleagues, with an educational julianne from [employer]. Review of Systems Const Denies fatigue, Denies fever(s), Denies headache(s) and Denies weakness Eyes Details: 02/05/[address] Luke Dostal - no retinopathy coma no glaucoma Denies change in vision ENT Denies dizziness, Denies headache(s), Denies nasal congestion, Denies nasal discharge and Denies sore throat Card Denies chest pain, Denies lightheadedness, Denies palpitations and Denies dyspnea Resp Denies chest congestion, Denies cough, Denies dyspnea and Denies wheezing GI Denies abdominal pain, Denies change in bowel habits and Denies heartburn Denies urinary frequency, Denies dysuria and Denies urinary urgency Musc Reports as per HPI, Denies joint swelling and Reports stiffness Skin/Breast Denies lesions and Denies rash Neuro Denies dizziness, Denies headache(s) and Denies weakness Endo Details: Sees Dr. Sandoval for diabetic foot exam in 2021, no neuropathy, positive hammertoe Denies fatigue, Denies polydipsia, Denies polyuria and Denies palpitations Mario/Lymph Denies easy bruising Aller/Immun Denies seasonal rhinorrhea and Denies wheezing Physical exam (Primary Care) Vital Signs: Last Vital Signs Pulse 77 04/01/24 11:01 BP 130/82 04/01/24 11:01 Pulse Ox 99 04/01/24 11:01 Oxygen Delivery Method Room Air 04/01/24 11:01 BMI result Body Mass Index 27.7 Tobacco/Smoking Status: Tobacco use Status Tobacco use date assessed 09/24/23 04/01/24 11:05 Patient Tobacco Use Status Former Tobacco user 04/01/24 11:05 e-Cigarette/Vaping Use Never Used 04/01/24 11:05 PHQ-9: PHQ-9 Score PHQ-9: Total score 0 04/01/24 11:08 Depression Screening Interpretation: Negative Thrive Assessment: Date of Thrive Assessment Date Thrive assessed 09/24/23 04/01/24 11:05 Currently or been in a relationship where the following occur: No concerns reported Const General: comfortable and no acute distress Orientation/consciousness: patient oriented x3 HENMT Ears: external ears normal General nose exam: Normal external nose present and No nasal discharge present Mouth: moist mucous membranes Eyes General: appearance normal, both eyes and all related structures Neck Other: Thyroid gland nonpalpable, nontender to palpation Neck: Yes full ROM, Yes no lymphadenopathy and Yes supple Resp Effort & Inspection: normal respiratory effort and able to speak in complete sentences Auscultation: clear to auscultation bilaterally Cardio Rate: regular rate Rhythm: regular rhythm Heart sounds: S1 normal heart sound present and S2 normal heart sound present GI Palpation (GI): Soft to palpation and nontender Auscultation: normal bowel sounds General: Yes no CVA tenderness Back/Spine/Pelvis Back: no CVA tenderness and No back tenderness Skin General skin exam: no rashes or lesions noted Neuro General: patient oriented x3, gait normal, tone normal, moves all extremities, Normal light touch and pain sensation and no focal motor deficits Cognition (Neuro): normal cognition Gait exam (Neuro): Normal gait present Motor exam (neuro): 5/5 motor strength present throughout Extrem General: Yes full ROM, Yes no joint enlargement, Yes no pedal edema and Yes normal gait Results Reviewed Results Reviewed: Name: Mary Kay Hester Age/Sex: 68/F : 1955 Unit#: [id number] Attend Dr: Bushra Patino MD Re03/31/24 Status: DEP [facility] SPEC : [id number] ASHOK: 03/31/24 STATUS: COMP REQ : [id number] RECD: 03/31/[address]: Bushra Patino MD COMP: 03/31/24 ENTERED: 03/31/24-[address] [facility] [address]: ORDERED: Met Prof Fast, AST, ALT, Lipid Panel, Vitamin D 25-OH, Free T4, TSH Test Result Flag Reference Sodium 143 135-145 mmol/L Potassium 4.0 3.3-5.1 mmol/L CL 104 96-108 mmol/L CO2 34 H 22-29 mmol/L Gap 9 L 12-20 BUN 15 9-16 mg/dL Creat 0.80 0.5-1.4 mg/dL eGFR > 60 Chronic Kidney Disease: Estimated GFR < 60 mL/min/1.73m2 Severe Kidney Disease: Estimated GFR < 15 mL/min/1.73m2 FBS 75 60-99 mg/dL CA 9.4 8.4-10.2 mg/dL AST (GOT) 23 5-31 U/L ALT (GPT) 14 0-31 U/L Triglyceride 46 <150 mg/dL Desirable Triglyceride: less than 150 mg/dL Borderline High Triglyceride 150-199 mg/dL High Triglyceride: 200-499 mg/dL Very High Triglyceride: greater than or equal to 5OO mg/dL Cholesterol 171 <200 mg/dL Desirable Cholesterol: less than 200 mg/dL Borderline High Cholesterol: 200-239 mg/dL High Cholesterol: greater than 239 mg/dL LDL Calculated 83 <100 mg/dL Desirable LDL: less than 100 mg/dL Near Optimal/Above Optimal LDL: 110-129 mg/dL Borderline High LDL: 130-159 mg/dL High LDL: 160-189 mg/dL Very High LDL: greater than or equal to 190 mg/dL HDL 79 >40 mg/dL Desirable HDL: greater than 40 mg/dL Note: This HDL assay may give artificially low results in patients with liver disease. Vit D 25-OH Tot 42.3 >30 ng/mL Health Based Reference Values* < 20 ng/mL Deficient 20-30 ng/mL Insufficient > 30 ng/mL Sufficient *Luther LOMAX. N Engl J Med. 2007;357:266-280 Care must be taken in interpreting Vitamin D results from different laboratories and methodologies. Published data demonstrated that results from patients undergoing hemodialysis may show a negative bias when tested with various automated 25-OH vitamin D assays when compared to LC-MS/MS. When testing samples from patients whose predominant form of Vitamin D is Vitamin D2, such as patients receiving Vitamin D2 supplementation, results that are subtherapeutic should be confirmed with another method such as LC-MS/MS. Free T4 1.13 0.71-1.85 ng/dL TSH 3rd Gen. 3.62 0.32-4.0 uIU/mL Note: A sustained TSH level above 2.5 uIU/mL may warrant further investigation. TSH 3rd Generation ([facility]) Coding Level of Care Code Est Pt Level 4 (43963) Complex EM visit Add On G2211 Diagnoses Dyslipidemia E78.5 Acquired hypothyroidism E03.9 Postmenopause Z78.0 Assessment & Plan Assessment & Plan (1) Dyslipidemia: Code(s): E78.5 - Hyperlipidemia, unspecified Category: Medical Plan: Fasting lipids are within normal limits, continue with current dose of pravastatin 80 mg 1 tablet at bedtime. (2) Acquired hypothyroidism: Code(s): E03.9 - Hypothyroidism, unspecified Category: Medical Plan: Continue with current dose of levothyroxine, latest thyroid levels are within normal limits (3) Postmenopause: Code(s): Z78.0 - Asymptomatic menopausal state Plan: Ordered bone density scan screening for osteoporosis Orders: Orders XR DEXA axial skeleton 04/01/24 Z13.820 - Encounter for screening for osteoporosis, Z78.0 - Asymptomatic menopausal state
== END 2024-04-01 11:51 | disposition home or self-care (01) ==
PROVIDERS: PCP Internal Medicine; Visit Provider Internal Medicine
DX: E78.5 Hyperlipidemia, unspecified (principal); E03.9 Hypothyroidism, unspecified; Z78.0 Asymptomatic menopausal state

== ENCOUNTER → 2024-04-01 10:40 | Outpatient (BNVA) | payer MEDICARE, SELFPAY | PROVIDERS: PCP Internal Medicine; Visit Provider Internal Medicine | DX: E78.5 Hyperlipidemia, unspecified (principal); E03.9 Hypothyroidism, unspecified; Z78.0 Asymptomatic menopausal state | CPT/HCPCS: 96127; 99212 ==

== ENCOUNTER 2024-10-15 11:59 | Outpatient (REF) | payer MEDICARE, SELFPAY ==
--- OUTSIDE RECORDS SUMMARY | 2024-10-15 12:41 | XMS_ITS | Patient Health Record ---
Author Organization [facility] Address [address] [place] [address] Care Team Providers Care Socket Puller Name Role Phone Carey MOHAMUD, Bushra Primary Care Provider Logan Thompson Unavailable [phone] Allergies Allergen (clinical drug ingredient) Drug/Non Drug Allergy documented on EMR Reaction Allergy Type Onset Date Status gentamicin Gentamicin Sulfate Unknown Drug Allergy Active amoxicillin / clavulanate Augmentin Unknown Drug Allergy Active Reason For Referral No Information Medications Medication SIG (Take, Route, Frequency, Duration) Notes Start Date End Date Status Vitamin C 500 MG as directed Orally Active Lecithin 1200 MG 1 capsule Orally Onc e a day for 30 day(s) Active Pravastatin Sodium 80 MG 1 tablet Orally Once a day for 30 day(s) Active Fish Oil 1000 MG 1 capsule Orally Onc e a day for 30 day(s) Active Calcium + D3 600-800 MG-UNIT 1 tablet with a meal Orally Once a day for 30 day(s) Active Vitamin D 1000 UNIT 1 tablet Orally Once a day for 30 day(s) Active Lutein 20 MG 1 capsule with a milo l Orally Once a day for 30 day(s) Active Vitamin E 400 UNIT 1 capsule Orally Onc e a day for 30 day(s) Active Aspirin Adult Low Dose 81 MG 1 tablet Orally Once a day for 30 day(s) Active Lantus 100 UNIT/ML as directed/13 units Subcutaneous as directed Active NovoLOG 100 UNIT/ML as directed Subcutan eous as needed Active Levothyroxine Sodium 50 MCG 1 tablet on an empty stomach in the morning Orally Once a day for 30 day(s) Active Social History Tobacco Use: Social History Observation Description Date Details (start date - stop date) Never Smoker NA - NA Tobacco Use/Smoking Question Answer Notes Patient is a nonsmoker Alcohol Screen Question Answer Notes Did you have a drink containing alcohol in the p ast year? No Points 0 Interpretation Negative Section Notes: Nonsmoker; 1 glass of wine Q D Problems Problem Type SNOMED Code ICD Code Onset Dates Problem Status W/U Status Risk Notes Problem 712459003 Encounter for screening for malignant neoplasm of colon (Z12.11) Active confirmed Problem 309013118438517 Preprocedural examination (Z01.818) Active confirmed Problem 079221088 Long-term use of aspirin therapy (Z79.82) Active confirmed Plan Of Treatment Future Test Test Name Order Date COLONOSCOPY 08/29/2018 Insurance Providers Payer Name Payer Address Payer Phone Subscriber Number Group Number Insured Name Patient Relationship to Insured Coverage Start Date Coverage End Date [facility] [address] [place], [place] [id number] THUY DEJESUS Self - patient is the insured Medical (General) History Medical History History ICD Code IDDM Denies [place],CVA,Lung disease,renal disease Neg screening colonoscopy in 09/2008 Hypothyroidism Hyperlipidemia Arthritis right hip--may be having an ev entual hip replacement Surgical History Surgery Date(Month/Year) Rhinoplasty Eyelid lift
--- OUTSIDE RECORDS SUMMARY | 2024-10-15 12:41 | XMS_ITS | Patient Health Record ---
Author Organization [facility] Address [address] [facility] [place] [address] Care Team Providers Care Dyer Helper Name Role Phone Carey MOHAMUD, Bushra Mei Primary Care Provider Un available Black, Jesusita Unavailable [phone] Allergies Allergen (clinical drug ingredient) Drug/Non Drug Allergy documented on EMR Reaction Allergy Type Onset Date Status gentamicin Gentamicin Sulfate rash Drug Allergy Active Reason For Referral No Information Medications Medication SIG (Take, Route, Frequency, Duration) Notes Start Date End Date Status HumaLOG Active Levothyroxine Sodium 50 MCG as directed Orally Once a day Not-Taking Vicodin 5-300 MG 1-2 tablet as needed Orally every 6 hrs; Duration: 5 days 01/27/2014 Not-Taking Synthroid 25 MCG Orally Not -Taking Capsaicin Not-Taking Lecithin Not-Taking Calcium Active Fish Oil Not-Taking Fish Oil Active Vitamin C Not-Taking Vitamin C Active Caltrate 600 Not-Davey ing Levothyroxine Sodium Active Lutein Not-Taking Pravastatin Sodium 80 MG 1 tablet Orally Once a day; Duration: 30 day(s) Active Vitamin E Not-Taking Lantus Active Lantus Not-Taking Immunizations Vaccine Route Administration Date Status Comme nts Influenza Unknown 01/22/2017 Administered Influenza Unknown 01/14/2023 Administered Social History Alcohol Screen Question Answer Notes Did you have a drink contain ing alcohol in the past year? Yes How often did you have a dri nk containing alcohol in the past year? 4 or more times a week (4 points) Points 4 Interpretation Positive Tobacco use other than smoking: Question Answer Notes Are you an other tobacco user? No Problems Problem Type SNOMED Code ICD Code Onset Dates Problem Status W/U Status Risk Notes Problem Acquired hammer toe of right foot (7297218054701121 ) Other hammer toe(s) (acquired), right foot (M20.41) Active confirmed Problem Acquired hammer toe of left foot (4047224779694808 ) Other hammer toe(s) (acquired), left foot (M20.42) Active confirmed Problem Type II diabetes mellitus without complication (872254077) Type 2 diabetes mellitus without complications (E11.9) Active confirmed Problem PlantarFlexion o f metatarsal of left foot (M21.6X2) Active confirmed Problem Osteoarthritis of midtarsal joint of left foot (8231096511180825 ) Osteoarthritis of midtarsal joint of left foot (M19.072) Active confirmed Encounters Encounter Location Date Provider Diagnosis [facility] [address] [place] [address] 11/28/2023 Jesusita Sandoval Plan Of Treatment Pending Test Test Name Order Date [id number] NAIL, 6 OR MORE 12/24/2017 [id number] NAIL, 6 OR MORE 10/06/2021 [id number] NAIL, 6 OR MORE 09/24/2023 [id number] NAIL, 1-5 01/27/2014 [id number] NAIL, 1-5 01/02/2014 [id number] Plate 01/02/2014 [id number] 01/27/2014 [id number] SKIN/TISSUE 02/10/2014 [id number] SKIN LESIONS, OVER 4 12/25/19 18 Next Appt Details Provider Name:Jesusita Sandoval , 11/10/2024 03:30:00 PM, [address] [place], [address], Insurance Providers Payer Name Payer Address Payer Phone Subscriber Number Group Number Insured Name Patient Relationship to Insured Coverage Start Date Coverage End Date [employer] Medicare [id number] [address] [address] [place] [address] [id number] Mary Kay Hester Self - patient is the insured Medical (General) History Medical History History ICD Code Diabetic Diverticulitis Arthritis Measles Mumps Chicken pox Thyroid disorder Surgical History Surgery Date(Month/Year) colonoscopy 2009 right hip replacement 2019 carpal tunnel surgery 08/22/22
--- OUTSIDE RECORDS SUMMARY | 2024-10-15 12:41 | XMS_ITS | Clinical Summary ---
Author Organization [facility] Address [address] [place], [place] [id number] Care Team Providers Care Industrial Relations Worker Name Role Phone Unavailable Primary Care Provider Unavailabl e Social History Tobacco Use Types Packs/Day Years Used Date Smoking Tobacco: Never Assessed Comments Unknown Sex and Gender Information Value Date Recorded Sex Assigned at Not on file Legal Sex Female 1:54 PM EST Gender Identity Not on file Sexual Orientation Not on file Plan of Treatment Health Maintenance Due Date Last Done Comments Anxiety Screening 1972 Depression Screening 1972 Hepatitis C Screening 1972 DTaP,Tdap,Td Vaccine (1 - Tdap) [address] Colonography 07/21/1999 Cologuard (FIT-DNA) 07/21/1999 Colonoscopy 07/21/1999 Colorectal Cancer Screening 07/21/1999 Diabetes Screening 07/21/1999 Fecal Occult Blood 07/21/1999 Lipid Screening 07/21/1999 Sigmoidoscopy 07/21/1999 Pneumococcal Vaccine: 50+ (1 of 1 - PCV) 2004 Shingrix Vaccine (3 of 3) 08/07/2018 06/12/2018, Bone Density Screening 07/21/2019 Covid-19 Vaccine (4 2023-2 5 season) 2023 03/07/2021, 06/28/2020, 06/07/2020 Advance Directive Discussion 04/16/2024 Medicare Advantage Annual We llness Visit 04/16/2024 Influenza Vaccine (Season Ended) 2024 03/04/2023, 01/14/2020, 01/08/2019, Additional history exists RSV Vaccine (1 - 1-dose 75+ series) 2029 [place] [address]
[2024-10-15 14:02] LABS: Alanine Aminotransferase 15 U/L (0-31); Anion Gap 11 (12-20); Aspartate Amino Transferase 21 U/L (5-31); Blood Urea Nitrogen 18 mg/dL (9-16); Calcium 9.0 mg/dL (8.4-10.2); Carbon Dioxide 31 mmol/L (22-29); Chloride 106 mmol/L (96-108); Cholesterol 171 mg/dL (<200); Estimated Glomerular Filt Rate > 60; HDL Cholesterol 74 mg/dL (>40); Potassium 3.8 mmol/L (3.3-5.1); Sodium 144 mmol/L (135-145); Triglycerides 47 mg/dL (<150)
[2024-10-15 14:08] LABS: Free T4 (Free Thyroxine) 1.02 ng/dL (0.71-1.85); Thyroid Stimulating Hormone 3.03 uIU/mL (0.32-4.0)
== END 2024-10-15 12:00 | disposition home or self-care (01) ==
LOC: HO.LAB 11:59
PROVIDERS: PCP Internal Medicine; Visit Provider Internal Medicine
DX: E78.5 Hyperlipidemia, unspecified (principal); E03.9 Hypothyroidism, unspecified; Z78.0 Asymptomatic menopausal state
CPT/HCPCS: 36415; 80048; 80061; 82306; 84439; 84443; 84450; 84460

== ENCOUNTER 2024-10-28 08:46 | Outpatient (AMB) | payer MEDICARE, SELFPAY ==
--- OUTSIDE RECORDS SUMMARY | 2014-01-23 04:34 | XMS_ITS | Continuity of Care Document ---
Author Organization [facility] Address [address] [place] [address] Phone Care Team Providers Care Digital Campaign Specialist Name Role Phone John Farley OD Unavailable Unavailable Allergies, Adverse Reactions, Alerts Substance Reaction Status Criticality pollen extracts Active No Informati on Medications Medication Instructions Dosage Effective Dates (start - stop) Status Comments NASONEX (unknown strength) Not Available - Active QUINAPRIL HCL (unknown strength) Not Available - Active DULOXETINE HCL (unknown strength) Not Available - Active Procedures Procedure Date Comprehensive Eye Exam - New Patient Dec Refractive State Advance Directives Directive Yes / No Effective Date File Name No Information Encounters Encounter Description Practice Location Reason(s) For Visit Diagnoses Date Provider Providers Copied on Encounter [facility], [address] [place] [address], [id number], tel:[phone] [facility] No Information 0 4 Miguelito Lopez. [address] [place] [address], [id number] . tel:[phone] [facility], [address] [place] [address], [id number], tel:[phone] Central Post Vitreous SeparationNuclear Sclerosis CataractPresbyopia /Accomodative 0 4 Miguelito Lopez. [address] [place] [address], [id number] . tel:[phone] Family History Family Member Type Diagnosis Age At Onset Multiple Problem (finding) Cataracts Multiple Problem (finding) Maternal history of sandra betes mellitus Father Problem (finding) Heart Disease Father Problem (finding) Arthritis Payers Payer name Insurance type Covered green party ID Authoriza tion(s) [employer] BL [id number] Social History Type Description Quantity Date Captured Comments Sex Female Smoking Status No Information Chief Complaint And Reason For Visit No Information Reason For Referral Reason For Referral No Information History Of Present Illness Encounter Date Complaint History Of Prese nt Illness No Information Functional Status Date Functional Assessmen t No Information Instructions Date Instruction Additional Infor hayes - Return to Clinic i n 1 year for Cataract Check with Dr. Farley. Related to Degeneration (Incl. PVD) 1. Degeneration (Inc l. PVD) (OS); with stable retinal exam2. Nuclear Sclerosis Cataract (OU)3. Presbyopia/Accomodative (OU)4. S/P Lasik OD - Discussed pathophysiology of posterior vitreous detachment. Discussed this is responsible for patient's visual complaints. Discussed no retinal holes or tears are visible at present. But, risk for development of a retinal tear is highest during the first 2-3 months after the onset of PVD. Emphasized signs and symptoms of RD, specifically any sudden onset of new floaters, with or without flashing lights, or any sense of a curtain coming down over their vision (patient to self-check peripheral vision daily). Supplemental literature provided. If any of the above occurs patient to RTC urgently for reevaluation. Discussed a cataract is present and is a normal age related finding. It explains why the patient's vision might not be as clear as it used to be and why they may be starting to notice changes in activities of living. At the present time, the cataract is not interfering to the point of requiring surgery. Refractive Error-New RX Given Related to Degeneration (Incl. PVD) Assessments Type Assessment Date No Information Patient Care Teams Name Effective Dates (start - stop) Status Members No Information
--- OUTSIDE RECORDS SUMMARY | 2024-10-28 08:55 | XMS_ITS | Patient Health Record ---
Author Organization [facility] Address [address] [place] [address] Care Team Providers Care Healthcare Marketer Name Role Phone Carey MOHAMUD, Bushra Primary Care Provider Logan Thompson Unavailable [phone] Allergies Allergen (clinical drug ingredient) Drug/Non Drug [...] Problem Status W/U Status Risk Notes Problem 097993610 Encounter for screening for malignant neoplasm of colon (Z12.11) Active confirmed Problem 143706280552048 Preprocedural examination (Z01.818) Active confirmed Problem 053898466 Long-term use of aspirin therapy (Z79.82) Active confirmed Plan Of Treatment Future Test Test Name Order Date COLONOSCOPY 08/29/2018 Insurance Providers Payer Name Payer Address Payer Phone Subscriber Number Group Number Insured Name Patient Relationship to Insured Coverage Start Date Coverage End Date [facility] [address] [place], [place] [id number] [phone] [id number] THUY DEJESUS Self - patient is the insured Medical (General) History Medical History History ICD Code IDDM Denies [place],CVA,Lung disease,renal disease Neg screening colonoscopy in 09/2008 Hypothyroidism Hyperlipidemia Arthritis right hip--may be having an ev entual hip replacement Surgical History Surgery Date(Month/Year) Rhinoplasty Eyelid lift
--- OUTSIDE RECORDS SUMMARY | 2024-10-28 08:55 | XMS_ITS | Patient Health Record ---
Author Organization [facility] Address [address] [facility] [place] [address] Care Team Providers Care Computer Systems Consultant Name Role Phone Carey MOHAMUD, Bushra Mei Primary Care Provider Un available Black, Jesusita Unavailable [phone] Allergies Allergen (clinical drug ingredient) Drug/Non Drug [...] Problem Acquired hammer toe of right foot (8351259505296362 ) Other hammer toe(s) (acquired), right foot (M20.41) Active confirmed Problem Acquired hammer toe of left foot (5366743764392749 ) Other hammer toe(s) (acquired), left foot (M20.42) Active confirmed Problem Type II diabetes mellitus without complication (668933897) Type 2 diabetes mellitus without complications (E11.9) Active confirmed Problem PlantarFlexion o f metatarsal of left foot (M21.6X2) Active confirmed Problem Osteoarthritis of midtarsal joint of left foot (1583078302770837 ) Osteoarthritis of midtarsal joint of left foot (M19.072) Active confirmed Encounters Encounter Location Date Provider Diagnosis [facility] [place] [address] [place] [address] 11/28/2023 Jesusita Sandoval Plan Of Treatment Pending Test Test Name Order Date [id number] NAIL, 6 OR MORE 12/24/2017 [id number] NAIL, 6 OR MORE 10/06/2021 [id number] NAIL, 6 OR MORE 09/24/2023 [id number] NAIL, 1-5 01/02/2014 [id number] NAIL, 1-5 01/27/2014 70612-[id number] Plate 01/02/2014 [id number] 01/27/2014 [id number] SKIN/TISSUE 02/10/2014 32048-[id number] SKIN LESIONS, OVER 4 12/25/19 18 Next Appt Details Provider Name:Jesusita Sandoval , 11/10/2024 03:30:00 PM, [address] [place], [address], Insurance Providers Payer Name Payer Address Payer Phone Subscriber Number Group Number Insured Name Patient Relationship to Insured Coverage Start Date Coverage End Date [employer] Medicare [id number] [address] [address] [place] [address] [id number] Mary Kay Hester Self - patient is the insured Medical (General) History Medical History History ICD Code Diabetic Diverticulitis Arthritis Measles Mumps Chicken pox Thyroid disorder Surgical History Surgery Date(Month/Year) colonoscopy 2009 right hip replacement 2019 carpal tunnel surgery 08/22/22
--- OUTSIDE RECORDS SUMMARY | 2024-10-28 08:55 | XMS_ITS | Clinical Summary ---
Author Organization [facility] Address [address] [place], [place] [address] Care Team Providers Care Textile Engraver Name Role Phone Unavailable Primary Care Provider [...] Bone Density Screening 07/21/2019 Covid-19 Vaccine (4 - 2023-2 5 season) 2023 03/07/2021, 06/28/2020, 06/07/2020 Advance Directive Discussion 04/16/2024 Medicare Advantage Annual We llness Visit 04/16/2024 Influenza Vaccine (#1) 2024 3, 01/14/2020, 01/08/2019, Additional history exists RSV Vaccine (1 - 1-dose 75+ series) 2029 [place] [address]
[2024-10-28 09:06] VITALS: BP 122/70; PULSE 72; RESP 16; TEMP 36.9; O2SAT 98; BMI 27.5
--- NOTE | 2024-10-28 09:06 | MHC.PC.OV ---
Vital Signs 10/28/24 09:06 Height 5 ft 6.5 in Weight 173 lb BMI 27.5 BP 122/70 Blood Pressure Location Rt brachial Position Sitting Respiration 16 Pulse 72 Pulse Source Pulse Oximeter Temp 98.5 F Temp Source Oral Pulse Oximetry (%) 98 Oxygen Delivery Method Room Air Intake Visit Reasons: PE - see comments Intake Note: Pt is here today for her PE: Last mammogram 09/18/24, bone density scan 08/31/22, colonoscopy 10/07/18 Allergies gentamicin Adverse Reaction (Verified 10/28/24 09:22) rash Medication List - Last Reconciled 10/28/24 by Bushra Patino MD ascorbic acid (vitamin C) mg PO aspirin 81 mg PO DAILY calcium carbonate 500 mg PO DAILY cholecalciferol (vitamin D3) 25 mcg PO DAILY clobetasol 0.05% 1 appl topical BID insulin glargine (Lantus U-100 Insulin) 13 units subcut every evening; insulin lispro (Humalog KwikPen (U-100) Insulin) subcut levothyroxine 50 mcg PO Take 1 tab 3 days per week, 1.5 tabs 4 days per week; lutein 20 mg PO DAILY multivitamin 1 tab PO DAILY omega-3 fatty acids (Fish Oil Concentrate) 1,000 mg PO DAILY pravastatin 80 mg PO BEDTIME Tobacco use date assessed: 10/28/24 Fall risk assessment: No Falls in past year Last assessed Fall Risk: 10/28/24 Dental Screening Dental Screen Date: 10/28/24 Did you have a dental visit in the last 12 months?: Yes Did you have a dental problem in the last 6 months where you did not have access to dental care?: Yes Was dental information given to patient?: Patient has dentist HPI PE - see comments HPI Details 69-year-old lady here today for physical exam. She has been seen recently by her kiln maintenance in [place] last 08/07/24 for follow-up on her type 1 diabetes mellitus, with last hemoglobin A1c at 6.7. She has hypothyroidism currently stable and controlled on levothyroxine at her current dose, and fasting lipids are within normal limits seen on latest labs done and is currently taking pravastatin 80 mg at bedtime together with Seminole 3 fatty acid supplements. Up-to-date with her breast cancer screening, with last mammogram done 09/18/24 with benign findings, and her last bone density scan was done 08/31/22 ordered by her OBGYN Dr. Jason who has now retired, which showed normal bone density. She had her last colonoscopy on 10/07/18, which showed normal findings, repeat due again in 2028. [facility] Medical History (Updated 10/28/24 @ 23:53 by Bushra Patino MD) Bilateral hand pain Menopause Osteoarthritis of right hip Osteoarthritis of both knees Psoriasis Internal hemorrhoids Sigmoid diverticulosis Acquired hypothyroidism Osteopenia of lumbar spine Dyslipidemia Diabetes mellitus type 1, controlled Surgical History History of carpal tunnel surgery of right wrist History of hip replacement History of colonoscopy Family History Father Kidney stones Mother Bladder cancer CAD (coronary artery disease) Kidney stones CVD (cardiovascular disease) Daughter Cancer of thyroid Brother No problems noted. Daughter No problems noted. Daughter No problems noted. Sister No problems noted. Sister No problems noted. Sister No problems noted. Social History Housing: House Alcohol intake: current Patient Tobacco Use Status: Former Tobacco user Years Smoked: 2 yrs e-Cigarette/Vaping Use: Never Used service: No Current occupational status: retired Cognitive needs: No Hearing needs: No Vision needs: Yes Questionnaire PHQ-9 Over the last 2 weeks, how often have you been bothered by any of the following problems? 1. Little interest or pleasure in doing things: not at all 2. Feeling down, depressed, or hopeless: not at all 3. Trouble falling or staying asleep, or sleeping too much: not at all 4. Feeling tired or having little energy: not at all 5. Poor appetite or overeating: not at all 6. Feeling bad about yourself - or that you are a failure or have let yourself or your family down: not at all 7. Trouble concentrating on things, such as reading the newspaper or watching television: not at all 8. Moving or speaking so slowly that other people could have noticed. Or the opposite - being so fidgety or restless that you have been moving around a lot more than usual: not at all 9. Thoughts that you would be better off or of hurting yourself in some way: not at all Total score: 0 Depression Screening Interpretation: Negative Depression Screening Done: Yes 83276 - PHQ-9 Billing: Yes Source: Developed by Drs. Logan Larios, Liza Hagen, Marshall Chan and colleagues, with an educational julianne from [employer]. Thrive Questionnaire Date Thrive assessed: 10/23/24 I am a: Patient What is your living situation today?: I have a steady place to live Within the past 12 months, did the food you bought not last and you didn't have the money to get more?: Never true Within the past 12 months, did you worry whether your food would run out before you got money to buy more?: Never true Do you have trouble paying for medicines?: No Do you have trouble getting transportation to medical appointments?: No Do you have trouble paying your heating and electricity bill?: No Do you have trouble taking care of your child, family member or friend?: No Do you have trouble with day-to-day activities such as bathing, preparing meals, shopping, managing finances, etc.?: No Are you currently unemployed and looking for a job?: No Are you interested in more education?: No Please select the resources that you would like help with: None Currently or been in a relationship where the following occur: No concerns reported THRIVE Score: 0 AUDIT C Alcohol Use Questionnaire (AUDIT-C) 1. How often do you have a drink containing alcohol?: 4 or more times a week 2. How many drinks containing alcohol do you have on a typical day when you are drinking?: 1 or 2 3. How often do you have six or more drinks on one occasion?: Never Total Score: 4 MAUREEN-7 AMB Questionnaire MAUREEN-7 Date MAUREEN - 7 assessed: 10/28/24 Feeling nervous, anxious, or on edge: 0 = Not at all Not being able to stop or control worryin = Not at all Worrying too much about different things: 0 = Not at all Trouble relaxin = Not at all Being so restless that it is hard to sit still: 0 = Not at all Becoming easily annoyed or irritable: 0 = Not at all Feeling afraid as if something awful might happen: 0 = Not at all Total MAUREEN-7 score (0-4 normal; 5-9 mild; 10-14 moderate; 15-21 severe): 0 Source: Developed by Drs. Logan Larios, Liza Hagen, Marshall Chan and colleagues, with an educational julianne from [employer] MAUREEN-7 Assessment Billing MAUREEN-7 Assessment Tool: MAUREEN-7 Assessment 20583 Review of Systems Const Denies fatigue, Denies fever(s), Denies headache(s) and Denies weakness Eyes Details: sees MAGED Beard with DM eye exam , seen 04/2024, no retinopathy Denies change in vision ENT Details: sees dr Clark in [place] for her dental prophylaxis Denies dizziness, Denies headache(s), Denies nasal congestion, Denies nasal discharge and Denies sore throat Card Denies chest pain, Denies lightheadedness, Denies palpitations and Denies dyspnea Resp Denies chest congestion, Denies cough, Denies dyspnea and Denies wheezing GI Denies abdominal pain, Denies change in bowel habits and Denies heartburn Denies urinary frequency, Denies dysuria and Denies urinary urgency Musc Denies joint swelling and Reports stiffness Skin/Breast Denies lesions and Denies rash Neuro Denies dizziness, Denies headache(s) and Denies weakness Endo Details: Sees Dr. Sandoval for diabetic foot exam in 2021, no neuropathy, positive hammertoe Denies fatigue, Denies polydipsia, Denies polyuria and Denies palpitations Mario/Lymph Denies easy bruising Aller/Immun Denies seasonal rhinorrhea and Denies wheezing Physical exam (Primary Care) Vital Signs: Last Vital Signs Temp 98.5 F 10/28/24 09:06 Pulse 72 10/28/24 09:06 Resp 16 10/28/24 09:06 BP 122/70 10/28/24 09:06 Pulse Ox 98 10/28/24 09:06 Oxygen Delivery Method Room Air 10/28/24 09:06 BMI result Body Mass Index 27.5 Tobacco/Smoking Status: Tobacco use Status Tobacco use date assessed 10/28/24 10/28/24 09:08 Patient Tobacco Use Status Former Tobacco user 10/28/24 09:08 e-Cigarette/Vaping Use Never Used 10/28/24 09:08 PHQ-9: PHQ-9 Score PHQ-9: Total score 0 10/28/24 23:50 Depression Screening Interpretation: Negative Thrive Assessment: Date of Thrive Assessment Date Thrive assessed 10/23/24 10/28/24 09:08 Currently or been in a relationship where the following occur: No concerns reported Advance Care Planning discussion: Completed/Scanned Date of discussion: 10/28/24 Who was present: Patient Forms completed: Health Care Proxy and MOLST Time spent: 16-45 minutes Actual minutes spent: 3 Const General: comfortable and no acute distress Orientation/consciousness: patient oriented x3 HENMT Ears: external ears normal General nose exam: Normal external nose present and No nasal discharge present Mouth: moist mucous membranes Eyes General: appearance normal, both eyes and all related structures Neck Other: Palpable thyroid gland, nontender Neck: Yes full ROM, Yes no lymphadenopathy and Yes supple Chest Chest palpation & inspection: normal inspection of the chest Resp Effort & Inspection: normal respiratory effort and able to speak in complete sentences Auscultation: clear to auscultation bilaterally Cardio Rate: regular rate Rhythm: regular rhythm Heart sounds: S1 normal heart sound present and S2 normal heart sound present GI Palpation (GI): Soft to palpation and nontender Auscultation: normal bowel sounds General: Yes no CVA tenderness Back/Spine/Pelvis Back: no CVA tenderness and No back tenderness Skin General skin exam: no rashes or lesions noted Neuro General: patient oriented x3, gait normal, tone normal, moves all extremities, Normal light touch and pain sensation and no focal motor deficits Cognition (Neuro): normal cognition Gait exam (Neuro): Normal gait present Motor exam (neuro): 5/5 motor strength present throughout Extrem General: Yes full ROM, Yes no joint enlargement, Yes no pedal edema and Yes normal gait Psych Appearance: grossly normal and well kempt Mental Status: mental status grossly normal Speech and movement: Normal speech and movement present Affect: normal affect Results Reviewed Results Reviewed: Name: Mary Kay Hester Age/Sex: 69/F : 1955 Unit#: [id number] Attend Dr: Bushra Patino MD Re10/15/24 Status: DEP [facility]: SPEC : [id number] ASHOK: 10/15/24 STATUS: COMP REQ : [id number] RECD: 10/15/24 [facility] DR: Bushra Patino MD COMP: 10/15/24 ENTERED: 10/15/[address] [facility] [address]: ORDERED: Met Prof Fast, AST, ALT, Lipid Panel, Vitamin D 25-OH, Free T4, TSH Test Result Flag Reference Sodium 144 135-145 mmol/L Potassium 3.8 3.3-5.1 mmol/L CL 106 96-108 mmol/L CO2 31 H 22-29 mmol/L Gap 11 L 12-20 BUN 18 H 9-16 mg/dL Creat 0.76 0.5-1.4 mg/dL eGFR > 60 Chronic Kidney Disease: Estimated GFR < 60 mL/min/1.73m2 Severe Kidney Disease: Estimated GFR < 15 mL/min/1.73m2 FBS 90 60-99 mg/dL CA 9.0 8.4-10.2 mg/dL AST (GOT) 21 5-31 U/L ALT (GPT) 15 0-31 U/L Triglyceride 47 <150 mg/dL Desirable Triglyceride: less than 150 mg/dL Borderline High Triglyceride 150-199 mg/dL High Triglyceride: 200-499 mg/dL Very High Triglyceride: greater than or equal to 5OO mg/dL Cholesterol 171 <200 mg/dL Desirable Cholesterol: less than 200 mg/dL Borderline High Cholesterol: 200-239 mg/dL High Cholesterol: greater than 239 mg/dL LDL Calculated 88 <100 mg/dL Desirable LDL: less than 100 mg/dL Near Optimal/Above Optimal LDL: 110-129 mg/dL Borderline High LDL: 130-159 mg/dL High LDL: 160-189 mg/dL Very High LDL: greater than or equal to 190 mg/dL HDL 74 >40 mg/dL Desirable HDL: greater than 40 mg/dL Note: This HDL assay may give artificially low results in patients with liver disease. Vitamin D 25-OH 43.9 >30 ng/mL Health Based Reference Values* < 20 ng/mL Deficient 20-30 ng/mL Insufficient > 30 ng/mL Sufficient *Luther LOMAX. N Engl J Med. 2007;357:266-280 There is no well-established upper level of normal vitamin D levels. Some laboratories use 50 ng/mL as an upper limit of normal. However, toxicity is patient-dependent and may occur at any level. Careful correlation with the patient's presentation is necessary and, if there is concern for vitamin D toxicity, treatment should be considered irrespective of the serum level. Care must be taken in interpreting Vitamin D results from different laboratories and methodologies. Published data demonstrated that results from patients undergoing hemodialysis may show a negative bias when tested with various automated 25-OH vitamin D assays when compared to LC-MS/MS. When testing samples from patients whose predominant form of Vitamin D is Vitamin D2, such as patients receiving Vitamin D2 supplementation, results that are subtherapeutic should be confirmed with another method such as LC-MS/MS. Free T4 1.02 0.71-1.85 ng/dL TSH 3rd Gen. 3.03 0.32-4.0 uIU/mL Note: A sustained TSH level above 2.5 uIU/mL may warrant further investigation. TSH 3rd Generation ([facility]) Coding Level of Care Code Est Pt Prev Care >65y(10752) Diagnoses Annual visit for general adult medical examination with abnormal findings Z00.01 Dyslipidemia E78.5 Acquired hypothyroidism E03.9 Diabetes mellitus type 1, controlled E10.9 Osteoarthritis of both knees M17.0 Psoriasis L40.9 Advanced directives, counseling/discussion Z71.89 Additional Codes PHQ-9 - 15143 - PHQ-9 Billing: Yes ([id number]) Vital Signs *Quality* - Advance Care Planning discussion: Completed/Scanned ([id number]) Vital Signs *Quality* - Time spent: 16-45 minutes ([id number]) MAUREEN-7 Assessment Billing - MAUREEN-7 Assessment Tool: MAUREEN-7 Assessment 66668 ([id number]) Assessment & Plan Assessment & Plan (1) Annual visit for general adult medical examination with abnormal findings: Code(s): Z00.01 - Encounter for general adult medical examination with abnormal findings Plan: Results of recent fasting lab discussed with patient. New with regular dental visit every 6 months and yearly eye exams, currently up-to-date. Take adequate calcium in diet and vitamin-D 3 at 2000 IU per cap once a day, in addition to weight-bearing exercises to help maintain good muscle tone and weight control. Continue regular breast exams and get yearly mammogram, up-to-date. Patient is up-to-date with her colon cancer screening, due again in 2028, up-to-date with her vaccines. Last bone density scan done in 2022 showed normal findings. (2) Dyslipidemia: Code(s): E78.5 - Hyperlipidemia, unspecified Category: Medical Plan: Fasting lipids are within normal limits, continued on current dose of pravastatin and Seminole 3 fatty acid supplements (3) Acquired hypothyroidism: Code(s): E03.9 - Hypothyroidism, unspecified Category: Medical Plan: Continued on current dose of levothyroxine, thyroid gland palpable on exam, ordered an ultrasound of thyroid for further evaluation (4) Diabetes mellitus type 1, controlled: Code(s): E10.9 - Type 1 diabetes mellitus without complications Category: Medical Plan: Currently being followed at endocrine clinic in [place] by Dr. Grijalva (5) Osteoarthritis of both knees: Code(s): M17.0 - Bilateral primary osteoarthritis of knee Category: Medical Plan: Takes Tylenol as needed (6) Psoriasis: Comment: followed at [facility] by Dr. Meier Code(s): L40.9 - Psoriasis, unspecified Category: Medical Plan: Followed at [facility] currently on clobetasol 0.05% cream applied as needed (7) Advanced directives, counseling/discussion: Code(s): Z71.89 - Other specified counseling Plan: Initiated the conversation about Advanced Directives. Advanced Directives help patients prepare for current and future decisions about their medical treatment and place of care. Discussed with patient that it is a process where a patients current condition and prognosis are reviewed, their wishes for information regarding their illness are elicited, and likely medical dilemmas are presented and options discussed. Healthcare proxy form and MOLST form completed today. These forms can be amended as needed, reviewed yearly and make changes as needed Orders: Orders US thyroid 10/28/24 E04.9 - Nontoxic goiter, unspecified Comprehensive [place]. Panel Fast 04/16/25 E03.9 - Hypothyroidism, unspecified, E10.9 - Type 1 diabetes mellitus without complications, E78.5 - Hyperlipidemia, unspecified, Z78.0 - Asymptomatic menopausal state Lipid Panel 04/16/25 E03.9 - Hypothyroidism, unspecified, E10.9 - Type 1 diabetes mellitus without complications, E78.5 - Hyperlipidemia, unspecified, Z78.0 - Asymptomatic menopausal state Vitamin D 25-OH Total 04/16/25 E03.9 - Hypothyroidism, unspecified, E10.9 - Type 1 diabetes mellitus without complications, E78.5 - Hyperlipidemia, unspecified, Z78.0 - Asymptomatic menopausal state Free T4 (Free Thyroxine) 04/16/25 E03.9 - Hypothyroidism, unspecified, E10.9 - Type 1 diabetes mellitus without complications, E78.5 - Hyperlipidemia, unspecified, Z78.0 - Asymptomatic menopausal state Hemoglobin A1c 04/16/25 E03.9 - Hypothyroidism, unspecified, E10.9 - Type 1 diabetes mellitus without complications, E78.5 - Hyperlipidemia, unspecified, Z78.0 - Asymptomatic menopausal state Thyroid Stimulating Hormone 04/16/25 E03.9 - Hypothyroidism, unspecified, E10.9 - Type 1 diabetes mellitus without complications, E78.5 - Hyperlipidemia, unspecified, Z78.0 - Asymptomatic menopausal state Medications: Refilled pravastatin 80 mg PO BEDTIME 90 tabs 4RF
== END 2024-10-28 10:06 | disposition home or self-care (01) ==
LOC: HO.HMCC 08:46
PROVIDERS: PCP Internal Medicine; Visit Provider Internal Medicine
DX: Z00.01 Encounter for general adult medical examination with abnormal findings (principal); E78.5 Hyperlipidemia, unspecified; E03.9 Hypothyroidism, unspecified; E10.9 Type 1 diabetes mellitus without complications; M17.0 Bilateral primary osteoarthritis of knee; L40.9 Psoriasis, unspecified; Z71.89 Other specified counseling; Z00.00 Encounter for general adult medical examination without abnormal findings

== ENCOUNTER → 2024-10-28 08:46 | Outpatient (BNVA) | payer MEDICARE, SELFPAY | PROVIDERS: PCP Internal Medicine; Visit Provider Internal Medicine | DX: Z00.01 Encounter for general adult medical examination with abnormal findings (principal); E78.5 Hyperlipidemia, unspecified; E03.9 Hypothyroidism, unspecified; E10.9 Type 1 diabetes mellitus without complications; M17.0 Bilateral primary osteoarthritis of knee; L40.9 Psoriasis, unspecified; Z71.89 Other specified counseling | CPT/HCPCS: 96127; 99397; 99497 ==

== ENCOUNTER 2024-11-07 08:56 | Outpatient (REF) | payer MEDICARE, SELFPAY ==
--- OUTSIDE RECORDS SUMMARY | 2014-01-23 04:34 | XMS_ITS | Continuity of Care Document ---
Author Organization [facility] Address [address] [place] [address] Phone Care Team Providers Care Public Health Physician Name Role Phone John Farley OD Unavailable [...] Diagnoses Date Provider Providers Copied on Encounter [facility], [address] [place] [address], [id number], tel:[phone] [facility] No Information 0 4 Miguelito Lopez. [address] [place] [address], [id number] . tel:[phone] [facility], [address] [place] [address], [id number], tel:[phone] Central Post Vitreous SeparationNuclear Sclerosis CataractPresbyopia /Accomodative 0 4 Miguelito Lopez. [address] [place] [address], [id number] . tel:[phone] Family History Family Member Type Diagnosis Age At Onset Multiple Problem (finding) Cataracts Multiple Problem (finding) Maternal history of sandra betes mellitus Father Problem (finding) Heart Disease Father Problem (finding) Arthritis Payers Payer name Insurance type Covered alliance party ID Authoriza tion(s) [employer] BL [id number] Social History Type Description Quantity Date Captured [...]
--- NOTE | ~2024-11-07 | US_ITS ---
EXAMINATION: US THYROID CLINICAL INFORMATION: Goiter, nontoxic. COMPARISON: 08/23/2007. TECHNIQUE: Linear transducer grayscale and color Doppler examination with attention to the region of the thyroid. FINDINGS: SIZE: Measurements of the thyroid lobes and nodules are given in sagittal, anteroposterior and transverse dimensions respectively. Right Thyroid Lobe: 3.7 x 1.3 x 1.4 cm, volume 3.5 mL. Parenchyma: The gland echotexture is mildly heterogeneous. Thyroid vascularity is normal. Left Thyroid Lobe: 3.0 x 0.8 x 1.1 cm, volume 1.4 mL. Parenchyma: The gland echotexture is mildly heterogeneous.. Thyroid vascularity is normal. Isthmus: 0.2 cm in maximum AP dimension. There are no nodules present. NODES: No lymphadenopathy is seen in the tissue surrounding the thyroid gland. US/US thyroid IMPRESSION: 1. Mildly heterogeneous thyroid echotexture without focal nodule present. Electronically signed by: Johan Vyas MD 11/07/2024 09:19 AM EDT
--- OUTSIDE RECORDS SUMMARY | 2024-11-07 09:15 | XMS_ITS | Patient Health Record ---
Author Organization [facility] Address [address] [facility] [place] [address] Care Team Providers Care Floor Tech Name Role Phone Carey MOHAMUD, Bushra Mei Primary Care Provider Un available Black, Jesusita Unavailable [phone] Allergies Allergen (clinical drug ingredient) Drug/Non Drug [...] Problem Acquired hammer toe of right foot (3234420960857237 ) Other hammer toe(s) (acquired), right foot (M20.41) Active confirmed Problem Acquired hammer toe of left foot (9746376767781714 ) Other hammer toe(s) (acquired), left foot (M20.42) Active confirmed Problem Type II diabetes mellitus without complication (248682283) Type 2 diabetes mellitus without complications (E11.9) Active confirmed Problem PlantarFlexion o f metatarsal of left foot (M21.6X2) Active confirmed Problem Osteoarthritis of midtarsal joint of left foot (6960308149427364 ) Osteoarthritis of midtarsal joint of left foot (M19.072) Active confirmed Encounters Encounter Location Date Provider Diagnosis [facility] [place] [address] [place] [address] 11/28/2023 Jesusita Sandoval Plan Of Treatment Pending Test Test Name Order Date [id number] NAIL, 6 OR MORE 12/24/2017 [id number] NAIL, 6 OR MORE 10/06/2021 [id number] NAIL, 6 OR MORE 09/24/2023 [id number] NAIL, 1-5 01/02/2014 [id number] NAIL, 1-5 01/27/2014 [id number] Plate 01/02/2014 [id number] 01/27/2014 [id number] SKIN/TISSUE 02/10/2014 13450-VBZH SKIN LESIONS, OVER 4 12/25/19 18 Next Appt Details Provider Name:Jesusita Sandoval , 11/10/2024 03:30:00 PM, [address] [place], [address], Insurance Providers Payer Name Payer Address Payer Phone Subscriber Number Group Number Insured Name Patient Relationship to Insured Coverage Start Date Coverage End Date [employer] Medicare [id number] [address] [address] [place] [address] [id number] Mary Kay Hester Self - patient is the insured Medical (General) History Medical History History ICD Code Diabetic Diverticulitis Arthritis Measles Mumps Chicken pox Thyroid disorder Surgical History Surgery Date(Month/Year) colonoscopy 2009 right hip replacement 2019 carpal tunnel surgery 08/22/22
--- OUTSIDE RECORDS SUMMARY | 2024-11-07 09:16 | XMS_ITS | Patient Health Record ---
Author Organization [facility] Address [address] [place] [address] Care Team Providers Care Research Spec Name Role Phone Carey MOHAMUD, Bushra Primary Care Provider Logan Thompson Unavailable [phone] Allergies Allergen (clinical drug ingredient) Drug/Non Drug [...] Problem Status W/U Status Risk Notes Problem 211023241 Encounter for screening for malignant neoplasm of colon (Z12.11) Active confirmed Problem [id number] Preprocedural examination (Z01.818) Active confirmed Problem 092301428 Long-term use of aspirin therapy (Z79.82) Active confirmed Plan Of Treatment Future Test Test Name Order Date COLONOSCOPY 08/29/2018 Insurance Providers Payer Name Payer Address Payer Phone Subscriber Number Group Number Insured Name Patient Relationship to Insured Coverage Start Date Coverage End Date [facility] [address] [place], [place] [id number] THUY DEJESUS Self - patient is the insured Medical (General) History Medical History History ICD Code IDDM Denies PR,CVA,Lung disease,renal disease Neg screening colonoscopy in 09/2008 Hypothyroidism Hyperlipidemia Arthritis right hip--may be having an ev entual hip replacement Surgical History Surgery Date(Month/Year) Rhinoplasty Eyelid lift
--- OUTSIDE RECORDS SUMMARY | 2024-11-07 09:16 | XMS_ITS | Clinical Summary ---
Author Organization [facility] Address [address] [place], [place] [id number] Care Team Providers Care Food Sales Clerk Name Role Phone Unavailable Primary Care Provider [...]
--- OUTSIDE RECORDS SUMMARY | 2024-11-07 09:16 | XMS_ITS | Clinical Summary ---
Author Organization [facility] Address [address] [facility] [address] [place] [phone] Phone Care Team Providers Care Order Processor Name Role Phone Bushra Patino MD Unavailable Luz Elena Grijalva MD Unavailable [phone] Bushra Patino MD Primary Care Provider Allergies Active Allergy Reactions Criticality Noted Date Comments Gentamicin Rash Low 01/17/2018 Medications BD ULTRA-FINE URIEL PEN NEEDLES 32 gauge x 5/32 Ndle 1 each by Miscellaneous route as needed. 5 X DAILY 400 each 3 07/15/19 18 Active pravastatin (PRAVACHOL) 80 MG tablet Take 80 mg by mouth daily. Active levothyroxine (SYNTHROID, LEVOTHROID) 50 MCG tablet Take 1 tablet by mouth daily. 1 tab three times weekly and 1 1/2 tabs four days per week Active Medication-Free Text Vitamin C 500 MG Tablet, Sig: as directed Orally Active lutein 20 mg Tab as directed Orally Active omega-3 fatty acids 1,000 mg Cap as directed Orally A ctive CALCIUM CARBONATE/VITAMIN D3 (CALCIUM 600 + D,3, ORAL) Active multivit/folic acid/vit K1 (ONE-A-DAY WOMEN'S 50 PLUS ORAL) 08/18/19 22 Active cholecalciferol (VITAMIN D3) 400 unit tablet Take 25 mcg by mouth daily. 04/04/20 22 Active ACCU-CHEK GUIDE GLUCOSE METER Misc meterIndications: Type 1 diabetes mellitus without complication by Miscellaneous route daily. Use as directed to self monitor glucose 6-8 times daily E10.9 1 each 03/15/20 23 Active insulin glargine (LANTUS SOLOSTAR U-100 INSULIN) 100 unit/mL (3 mL) InPn injection penIndications:Ty pe 1 diabetes mellitus with hyperglycemia INJECT SUBCUTANEOUSLY 14 TO 18 UNITS DAILY AT BEDTIME 30 mL 3 08/15/19 24 Active HUMALOG KWIKPEN INSULIN 100 unit/mL kwikpenIndication s:Type 1 diabetes mellitus without complication INJECT SUBCUTANEOUSLY 10 UNITS 3 TIMES DAILY BEFORE MEALS 30 mL 3 01/22/20 24 Active ACCU-CHEK GUIDE TEST STRIPS Strp stripsIndications :Type 1 diabetes mellitus without complication MONITOR BLOOD SUGAR 8 TIMES DAILY 800 strip 2 06/04/19 25 Active Active Problems Problem Noted Date Diagnosed Date Acquired hypothyroidism 02/10/2019 Assessment & Plan (01/22/2024 1:18 PM EDT): Continues on LT4 therapy Managed by PCP Most recent TSH 2.7, improved from last Symptomatically improved since on slightly higher dose of LT4 Assessment & Plan (01/19/2023 12:24 PM EDT): Continues on LT4 therapy Managed by PCP Most recent TSH 3.7 per Mary Kay Advised that her frustrations with weight is mostly related to reduced activity which she is encouraged to optimize Assessment & Plan (01/19/2022 1:43 PM EDT): Continues on LT4 therapy We do not have most recent thyroid lab data available for review today, Mary Kay reports that this is stable in good range and managed by PCP Assessment & Plan (02/15/2021 2:19 PM EDT): Continues on LT4 therapy We do not have most recent thyroid lab data available for review today Assessment & Plan (02/13/2020 11:41 PM EDT): Mary Kay shared her recent TSH and free T4 with me, these are in normal range, free T4 remains at lower end of target range She will continue her current LT4 dosage but Mary Kay is made aware that a very modest dose increase of 1/2 tab per week to a total dose of 1 tab alternated with 1 1/2 tabs from her current 1 tab daily except 1 1/2 tabs on two days per week may optimize the free T4, if she is symptomatically well then no need for adjustment since her current results are within normal range Mary Kay had a thyroid scan ~5 years ago, it is unclear what the follow up plan was for this, consideration for evaluation by general endocrinology would be appropriate Assessment & Plan (02/10/2019 1:23 PM EDT): Recent TSH 3.19 and fT4 0.95 We discussed a modest increase in L-thyroxine dosage to 50mcg daily and 75mcg on two days of the week Will need TFTs in 6 weeks, has appt with PCP in early March Type 1 diabetes mellitus without complication Overview (01/22/2024): Diabetes History Dx: type 1 diabetes, dx May 2007 Assessment & Plan (01/22/2024 1:21 PM EDT): Continues to have very good overall control, but continues to have variable glucose patterns with a larger than desired proportion in low range Continues with frequent self monitoring of glucose, hypoglycemia frequency has been above goal historically We did not adjust insulin doses today, there are times when Mary Kay overdoses insulin due to more persistent elevations or is surprised that an appropriate meal dose results in a low We revisited CGM again, Mary Kay remains uninterested in this as she will be traveling for several weeks, but will take a look at the latest models as discussed, she is encouraged to let me know if she would like to try a sample sensor to see how this would work for her, we discussed some difference between interstitial glucose monitoring and fingerstick blood sugar monitoring Mary Kay is encouraged to continue to stay active as tolerated, she has been doing well with this, and to continue healthy eating; Mary Kay has been successful with weight loss since she has been more consistent with this Continues on moderate intensity statin therapy Blood pressure remains in excellent control Mary Kay is advised to call with any questions or concerns, we will follow up in one year Assessment & Plan (01/19/2023 12:29 PM EDT): Continues to have very good overall control, but finds glucose patterns frustratingly variable Frequent self monitoring of glucose, hypoglycemia frequency has been above goal historically We did not adjust insulin doses today, there are times when Mary Kay overdoses insulin due to more persistent elevations or is surprised that an appropriate meal dose results in a low We revisited CGM again, Mary Kay remains uninterested in this but will take a look at the latest models as discussed, she is encouraged to let me know if she would like to try a sample sensor to see how this would work for her Mary Kay is encouraged to increase her activity as tolerated and to continue healthy eating, these will benefit her in terms of weight management Continues on moderate intensity statin therapy Mary Kay is advised to call with any questions or concerns, we will follow up in one year Assessment & Plan (01/19/2022 1:47 PM EDT): Continues to have very good overall control, some increase in hypoglycemia recently which Mary Kay attributes to overaggressive management prior to this visit as she wanted to make sure her readings are in range Frequent self monitoring of glucose indicates generally modest variability, but hypoglycemia frequency is above goal We did not adjust insulin doses today, advised not to be overaggressive with mealtime/correction doses We revisited CGM again, Mary Kay remains uninterested in this Mary Kay is encouraged to continue to stay active as tolerated and to continue healthy eating We discussed considerations for upcoming travel Continues on statin therapy Mary Kay is advised to call with any questions or concerns, we will follow up in one year Assessment & Plan (02/15/2021 2:22 PM EDT): Continues to have excellent overall control Frequent self monitoring of glucose indicates generally modest variability however occ hypoglycemia We did not adjust insulin doses today We revisited CGM again, Mary Kay remains uninterested in this, she is given written information on both the Dexcom G6 and Freestyle Bandar 2 sensors Mary Kay is encouraged to continue to stay active as tolerated and to continue healthy eating Continues on statin therapy Up to date on flu vaccine and COVID vaccine series Mary Kay is advised to call with any questions or concerns, we will follow up in one year Assessment & Plan (02/13/2020 11:46 PM EDT): Continues to have excellent overall control Frequent self monitoring of glucose indicates generally modest variability however occ hypoglycemia We did not adjust insulin doses today We revisited CGM, Mary Kay is not interested in this We discussed the effect of stress and poor sleep in glucose pattens Mary Kay is encouraged to continue to stay active as tolerated and to continue healthy eating Continues on statin therapy Up to date on flu vaccine Mary Kay is advised to call with any questions or concerns, we will follow up in one year Assessment & Plan (02/10/2019 1:20 PM EDT): Excellent overall control, mild rise in blood sugars in overnight period We discussed insulin adjustment to manage overnight rise in blood sugar but due to Mary Kay's insulin sensitivity she will likely more more at risk for overnight hypoglycemia as she had been in the past, if she feels the need to increase her basal insulin then she will likely need to reduce her evening meal dosage We discussed insulin adjustment prior to upcoming surgery Encouraged to experiment with presurgery evening snack tonight to assess dosing for this, if this works well then will repeat tomorrow night prior to surgery, if any questions then encouraged to call Encouraged to continue healthy lifestyle Advised to call with any questions or concerns postop and also when in [place] during the winter Assessment & Plan (01/17/2018 1:18 PM EDT): Excellent control overall We did not adjust insulin doses today We discussed insulin action profile and being judicious with insulin doses for elevated blood sugars between meals to avoid risk of overcorrection Encouraged to continue excellent self monitoring and advised to call us if any concerns about blood sugar patterns Mary Kay will follow up in one year Hypoglycemia due to type 1 diabetes mellitus 07/2017 Assessment & Plan (01/22/2024 1:18 PM EDT): Continues to have fairly frequent hypoglycemia anne late in the night, Mary Kay treats these appropriately and self monitors frequently to ensure response is adequate Would benefit from CGM and we revisited this again today, at this time she remains uninterested due to upcoming trave, she will take a look at the latest technology, Dexcom G7 and Freestyle Bandar 3, and let me know if she'd like to try a sample after her return Assessment & Plan (01/19/2023 12:25 PM EDT): Continues to have fairly frequent hypoglycemia, Mary Kay treats these appropriately and self monitors frequently to ensure response is adequate Would benefit from CGM and we revisited this again today, at this time she remains uninterested in this but will take a look at the latest technology, Dexcom G7 and Freestyle Bandar 3 Assessment & Plan (01/19/2022 1:44 PM EDT): Continues to fairly frequent hypoglycemia, Mary Kay treats these appropriately and self monitors frequently to ensure response is adequate Would benefit from CGM however remains uninterested in this We discussed possible significant cardiovascular health consequences and even which may result from prolonged and/or severe hypoglycemia in the overnight period Assessment & Plan (02/15/2021 2:22 PM EDT): Occ hypoglycemia, Mary Kay treats these appropriately and self monitors frequently to ensure response is adequate Would benefit from CGM however remains uninterested in this Assessment & Plan (02/13/2020 11:42 PM EDT): Occ hypoglycemia, Mary Kay treats these appropriately and self monitors frequently to ensure response is adequate Would benefit from CGM however remains uninterested in this Immunizations Immunization Administration Dates Next Due Influenza Quadrivalent Adjuv anted Preservative Free IM 01/23/2021 Influenza Quadrivalent Preservative Free IM 12/16,01/04/2017,01/20/2016 Influenza Quadrivalent w/ Preservative IM 2018 Influenza Trivalent Preservative Free IM 017 Pneumococcal conjugate PCV13 04/14/2016 Pneumococcal polysaccharide PPSV23 09/20/2021 Td (adult) 5 Lf Tetanus Toxo id, PF, Adsorbed 04/24/2018 Tdap 04/21/2018,01/15/2008 Zoster live 05/22/2018,04/12/2015 Zoster recombinant 08/29/2018,06/12/2018 Family History Medical History Relation Comments Cholelithiasis Father Nephrolithiasis Father Osteoarthritis Father Bladder Cancer Mother Nephrolithiasis Mother Other Mother Family history o f cancer. Relation Status Comments Father Mother Social History Tobacco Use Types Packs/Day Years Used Date Smoking Tobacco: Never Passive Smoke Exposure: Never Smokeless Tobacco: Never Tobacco Cessation:Counseling Given: No Alcohol Use Standard Drinks/Week Comments Yes 7 (1 standard drink = 0.6 oz pur e alcohol) 1 glass per week Education Answer Date Recorded Are you interested in more education? Not on estella e 08/11/2022 Are you concerned about learning? Not on file 08/11/2022 No 08/11/2022 No 08/11/2022 Digital Access Answer Date Recorded No 09/11/2022 No 09/11/2022 Reliable internet access at home? Not on file 09/11/2022 Device with a working camera? Not on file Comments Unknown Sex and Gender Information Value Date Recorded Sex Assigned at Female 07/17/2019 2:10 PM EDT Legal Sex Female 9:56 PM EDT Gender Identity Female 07/17/2019 2:10 PM EDT Sexual Orientation Not on file Last Filed Vital Signs Vital Sign Reading Time Taken Comments Blood Pressure 116/58 01/22/2024 10:59 AM EDT Pulse 87 01/17/2022 11:07 AM EDT Temperature 36.6 C (97.9 F) 01/17/2022 11:07 AM EDT Respiratory Rate - - Oxygen Saturation 100% 01/17/2022 11:07 AM EDT Inhaled Oxygen Concentration - - Weight 78.7 kg (173 lb 6.4 oz) 01/22/2024 10:59 AM EDT Height 168.9 cm (5' 6.5 ) 01/22/2024 10:59 AM ED T Body Mass Index 27.57 01/22/2024 10:59 AM EDT Plan of Treatment Upcoming Encounters Date Type Department Care Team (Late st Contact Info) Description 01/20/2025 11:00 AM EDT Office Visit [facility] [address] [place] [id number] Luz Elena Grijalva MD [address] [place] [address], [address] [place] [address] Health Maintenance Due Date Last Done Comments DEPRESSION SCREENING 1966 HEPATITIS C SCREENING 1972 MAMMOGRAM 1994 COLOGUARD 07/21/1999 COLONOSCOPY 07/21/1999 COLORECTAL CANCER SCREENING 07/21/1999 FIT TEST 07/21/1999 FOBT 07/21/1999 SIGMOIDOSCOPY 07/21/1999 VIRTUAL COLONOSCOPY 07/21/1999 RSV VACCINE (1 - Risk 60-74 years 1-dose series) 2014 OSTEOPOROSIS SCREENING INITIAL (ONE-TIME) 07/21/2019 DIABETIC EYE EXAM 01/18/2022 01/18/2021, , 09/26/2018 COVID-19 VACCINE ( season) 2023 10/24/2021 TSH LEVEL 06/12/2024 06/12/2023 BLOOD PRESSURE 07/22/2024 01/22/2024 URINE MICROALBUMIN/CREATININE RATIO 10/10/2024 10/11/2023 HEMOGLOBIN A1C 02/06/2025 08/07/2024, 07/2024, 12/27/2023, Additional history exists Adult Td,Tdap Booster 04/24/2028 04/24/2018 , 04/21/2018, 01/15/2008 ZOSTER VACCINES Completed 08/29/2018, 05/18, 05/22/2018, Additional history exists PNEUMOCOCCAL VACCINES (50+ years) Completed 09/20/2021, 04/14/2016 SMOKING STATUS SCREENING (Once After 26 Yrs) Completed 01/19/2023 HEPATITIS A VACCINES Aged Out No long er eligible based on patient's age to complete this topic HIB VACCINES Aged Out No longer eligi ble based on patient's age to complete this topic MENINGOCOCCAL VACCINES (ACWY) Aged Out No longer eligible based on patient's age to complete this topic MENINGOCOCCAL VACCINES (B) Aged Out N o longer eligible based on patient's age to complete this topic Medical Devices Not on file Procedures Procedure Name Priority Date/Time Associated Diagnosis Comments HEMOGLOBIN A1C Routine 08/07/2024 12:45 PM EDT Type 1 diabetes mellitus without complication MICROALBUMIN/CREATI NINE RATIO, RANDOM URINE Routine 10/11/2023 2:29 PM EDT Type 1 diabetes mellitus without complication HM DIABETES EYE EXAM FOR RESULT ENTRY ONLY Routine 01/18/2021 from Last 3 Months or Most Recently Relevant to Health Maintenance Results * (ABNORMAL) Hemoglobin A1c (08/07/2024 12:45 PM EDT) HEMOGLOBIN A1C 6.7(H) 4.3 - 5.8 % [facility] Blood 08/07/2024 12:4 5 PM EDT 08/07/2024 12:49 PM EDT Luz Elena Grijalva MD LAB BLOOD ORDERABLES Final Resu lt [address] [address] * Microalbumin/creatinine ratio, random urine (10/11/2023 2:29 PM EDT) URINE MICROALBUMIN <1.2 0 - 2.3 mg/dL [facility] URINE CREATININE 35 mg/dL [facility] MICROALB/CRE RATIO NOT CALCULATED 0 - 20 mg/g Cre [facility] Comment:due to Microalbumin <1.2 Urine (Urine) 10/11/2023 2:2 9 PM EDT 10/11/2023 2:39 PM EDT Luz Elena Grijalva MD URINE ORDERABLES Final Result Performing Organization Address [facility] Co de Phone Number [address] [phone] * DIABETES EYE EXAM FOR RESULT ENTRY ONLY (01/18/2021) HM EYE EXAM SEE SCANNED REPORT Patricia Correia MD HEALTH MAINTENANCE Final Result from Last 3 Months or Most Recently Relevant to Health Maintenance Insurance [facility] MEDICARE REPLACEMENT MEDICARE REPLACEMENT MEDICARE REPLACEMENT MEDICARE REPLACEMENT MEDICARE REPLACEMENT MEDICARE REPLACEMENT MEDICARE REPLACEMENT MEDICARE REPLACEMENT MEDICARE REPLACEMENT Care Teams Order Processor Relationship Specialty Start Date End Date Bushra Patino MD [address] [facility] [address] PCP - General 04/19/17 Bushra Patino MD [address] [facility] [address] Historical LMR Provider 01/29/17 Luz Elena Grijalva MD [address] [facility], [address] [place] [id number] [email or web address] Historical LMR Provider 01/29/17 Additional Source Comments The information contained in this document represents components of the legal health record. It is not the complete legal health record.[facility]
[2024-11-07 11:15] LABS: HBS Num1 1.09 mIU/mL (0-7.99); HBc Num1 0.11 S/CO (0.00-0.79); HBsAGNum1 0.41 S/CO (0.00-0.99); HIV Num 1 0.05 S/CO (0.00-0.99); Hepatitis B Surface Antigen Negative (Negative); ~HepC Num1 0.08 S/CO (0.00-0.79); ~Hepatitis B Surface Antibody NONREACTIVE (Nonreactive); ~Hepatitis C Antibody Nonreactive (Nonreactive)
== END 2024-11-07 08:57 | disposition home or self-care (01) ==
LOC: HO.HMGCX 08:56
PROVIDERS: PCP Internal Medicine; Visit Provider Internal Medicine
DX: Z11.3 Encounter for screening for infections with a predominantly sexual mode of transmission (principal); Z11.4 Encounter for screening for human immunodeficiency virus [HIV]; Z11.59 Encounter for screening for other viral diseases; E04.9 Nontoxic goiter, unspecified
CPT/HCPCS: 36415; 76536; 86704; 86706; 86803; 87340

== ENCOUNTER → 2024-11-07 08:59 | Outpatient (BNV) | payer MEDICARE, SELFPAY | PROVIDERS: PCP Internal Medicine; Visit Provider Radiology Diagnostic Radiology | DX: E04.9 Nontoxic goiter, unspecified (principal) | CPT/HCPCS: 76536 ==

== ENCOUNTER 2025-02-04 13:47 | Outpatient (AMB) | payer MEDICARE, SELFPAY ==
[2025-02-04 14:04] VITALS: BP 124/70; PULSE 81; RESP 16; TEMP 36.6; O2SAT 97; BMI 26.9
--- NOTE | 2025-02-04 14:04 | MHC.PC.OV ---
Vital Signs 02/04/25 14:04 Height 5 ft 6.5 in Weight 169 lb BMI 26.9 BP 124/70 Blood Pressure Location Rt brachial Position Sitting Respiration 16 Pulse 81 Pulse Source Pulse Oximeter Temp 97.9 F Temp Source Oral Pulse Oximetry (%) 97 Oxygen Delivery Method Room Air Intake Visit Reasons: [facility] follow up Heart Complications Intake Note: Pt is here today to f/u ED for Heart complications Reserve Operator Required: No Allergies gentamicin Adverse Reaction (Verified 02/04/25 14:10) rash Medication List - Last Reconciled 02/13/25 by Bushra Patino MD ascorbic acid (vitamin C) mg PO aspirin 81 mg PO DAILY calcium carbonate 500 mg PO DAILY cholecalciferol (vitamin D3) 25 mcg PO DAILY clobetasol 0.05% 1 appl topical BID insulin glargine (Lantus U-100 Insulin) 13 units subcut every evening; insulin lispro (Humalog KwikPen (U-100) Insulin) subcut levothyroxine 50 mcg PO Take 1 tab 3 days per week, 1.5 tabs 4 days per week; lutein 20 mg PO DAILY multivitamin 1 tab PO DAILY omega-3 fatty acids (Fish Oil Concentrate) 1,000 mg PO DAILY pravastatin 80 mg PO BEDTIME Tobacco use date assessed: 10/28/24 Dental Screening Dental Screen Date: 10/28/24 HPI [facility] ED follow up Heart Complications HPI Details 69-year-old lady with history of type 1 diabetes mellitus, hypothyroidism, osteoarthritis, and dyslipidemia, here today for follow-up after recent ER visit at [facility], where she presented for evaluation of tachycardia and palpitations . She was found to be in SVT at the ER, with a rate of 170 beats per minute, with mild ST depression which was felt to be rate related, no acute ST-T wave elevation seen. They were able to break the episode with vagal nerve maneuver, and repeat EKG showed normal sinus rhythm at a rate of 82 beats per minute with no ST-T wave abnormality seen. 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 She was given an immediate release diltiazem dose to take as needed for palpitations, but has not needed to take it since ER discharge. [facility] Medical History (Updated 02/04/25 @ 14:30 by Bushra Patino MD) SVT (supraventricular tachycardia) Bilateral hand pain Menopause Osteoarthritis of right hip Osteoarthritis of both knees Psoriasis Internal hemorrhoids Sigmoid diverticulosis Acquired hypothyroidism Osteopenia of lumbar spine Dyslipidemia Diabetes mellitus type 1, controlled Surgical History History of carpal tunnel surgery of right wrist History of hip replacement History of colonoscopy Family History Father Kidney stones Mother Bladder cancer CAD (coronary artery disease) Kidney stones CVD (cardiovascular disease) Daughter Cancer of thyroid Brother No problems noted. Daughter No problems noted. Daughter No problems noted. Sister No problems noted. Sister No problems noted. Sister No problems noted. Social History Housing: House Alcohol intake: current Patient Tobacco Use Status: Former Tobacco user Years Smoked: 2 yrs e-Cigarette/Vaping Use: Never Used service: No Current occupational status: retired Cognitive needs: No Hearing needs: No Vision needs: Yes Questionnaire Thrive Questionnaire Date Thrive assessed: 10/23/24 I am a: Patient What is your living situation today?: I have a steady place to live Within the past 12 months, did the food you bought not last and you didn't have the money to get more?: Never true Within the past 12 months, did you worry whether your food would run out before you got money to buy more?: Never true Do you have trouble paying for medicines?: No Do you have trouble getting transportation to medical appointments?: No Do you have trouble paying your heating and electricity bill?: No Do you have trouble taking care of your child, family member or friend?: No Do you have trouble with day-to-day activities such as bathing, preparing meals, shopping, managing finances, etc.?: No Are you currently unemployed and looking for a job?: No Are you interested in more education?: No Please select the resources that you would like help with: None Currently or been in a relationship where the following occur: No concerns reported THRIVE Score: 0 MAUREEN-7 AMB Questionnaire MAUREEN-7 Date MAUREEN - 7 assessed: 10/28/24 Source: Developed by Drs. Logan Larios, Liza Hagen, Marshall Chan and colleagues, with an educational julianne from [employer]. Review of Systems Const Denies fatigue, Denies fever(s), Denies headache(s) and Denies weakness Eyes Details: sees MAGED Beard with DM eye exam , seen 04/2024, no retinopathy Denies change in vision ENT Details: sees dr Clark in [place] for her dental prophylaxis Denies dizziness, Denies headache(s), Denies nasal congestion, Denies nasal discharge and Denies sore throat Card Denies chest pain, Denies lightheadedness, Denies palpitations and Denies dyspnea Resp Denies chest congestion, Denies cough, Denies dyspnea and Denies wheezing GI Denies abdominal pain, Denies change in bowel habits and Denies heartburn Denies urinary frequency, Denies dysuria and Denies urinary urgency Musc Denies joint swelling and Reports stiffness Skin/Breast Denies lesions and Denies rash Neuro Denies dizziness, Denies headache(s) and Denies weakness Endo Details: Seen by Dr. Sandoval for diabetic foot exam in 2021, no neuropathy, positive hammertoe Denies fatigue, Denies polydipsia, Denies polyuria and Denies palpitations Mario/Lymph Denies easy bruising Aller/Immun Denies seasonal rhinorrhea and Denies wheezing Physical exam (Primary Care) Vital Signs: Last Vital Signs Temp 97.9 F 02/04/25 14:04 Pulse 81 02/04/25 14:04 Resp 16 02/04/25 14:04 BP 124/70 02/04/25 14:04 Pulse Ox 97 02/04/25 14:04 Oxygen Delivery Method Room Air 02/04/25 14:04 BMI result Body Mass Index 26.9 Tobacco/Smoking Status: Tobacco use Status Tobacco use date assessed 10/28/24 02/04/25 14:05 Patient Tobacco Use Status Former Tobacco user 02/04/25 14:05 e-Cigarette/Vaping Use Never Used 02/04/25 14:05 Thrive Assessment: Date of Thrive Assessment Date Thrive assessed 10/23/24 02/04/25 14:05 Currently or been in a relationship where the following occur: No concerns reported Const General: comfortable and no acute distress Orientation/consciousness: patient oriented x3 HENMT Ears: external ears normal General nose exam: Normal external nose present Mouth: moist mucous membranes Eyes General: appearance normal, both eyes and all related structures Neck Other: Palpable thyroid gland, nontender Neck: Yes full ROM, Yes no lymphadenopathy and Yes supple Resp Effort & Inspection: normal respiratory effort and able to speak in complete sentences Auscultation: clear to auscultation bilaterally Cardio Rate: regular rate Rhythm: regular rhythm Heart sounds: S1 normal heart sound present and S2 normal heart sound present GI Palpation (GI): Soft to palpation and nontender Auscultation: normal bowel sounds General: Yes no CVA tenderness Back/Spine/Pelvis Back: no CVA tenderness and No back tenderness Skin General skin exam: no rashes or lesions noted Neuro General: patient oriented x3, gait normal, tone normal, moves all extremities, Normal light touch and pain sensation and no focal motor deficits Cognition (Neuro): normal cognition Gait exam (Neuro): Normal gait present Motor exam (neuro): 5/5 motor strength present throughout Extrem General: Yes full ROM, Yes no joint enlargement, Yes no pedal edema and Yes normal gait Psych Appearance: grossly normal and well kempt Mental Status: mental status grossly normal Speech and movement: Normal speech and movement present Affect: normal affect Coding Level of Care Code Est Pt Level 4 (28174) Complex EM visit Add On G2211 Diagnoses SVT (supraventricular tachycardia) I47.1 Acquired hypothyroidism E03.9 Controlled diabetes mellitus type 1 without complications E10.9 Diabetes mellitus complication status: without complication Assessment & Plan Assessment & Plan (1) SVT (supraventricular tachycardia): Code(s): I47.1 - Supraventricular tachycardia Category: Medical Plan: Resolved with vagal maneuver, has a prescription for diltiazem to take as needed for acute episodes of palpitations, referred to cardiology for further evaluation labs ordered to check thyroid stimulating hormone, free T4 and a CBC (2) Acquired hypothyroidism: Code(s): E03.9 - Hypothyroidism, unspecified Category: Medical Plan: TSH and free T4 ordered (3) Diabetes mellitus type 1, controlled: Code(s): E10.9 - Type 1 diabetes mellitus without complications Category: Medical Qualifiers: Diabetes mellitus complication status: without complication Qualified Code(s): E10.9 - Type 1 diabetes mellitus without complications Plan: Followed by Dr. Gonzalez currently on Lantus and Humalog KwikPen Orders: Orders Thyroid Stimulating Hormone 02/06/25 E03.9 - Hypothyroidism, unspecified Free T4 (Free Thyroxine) 02/06/25 E03.9 - Hypothyroidism, unspecified Complete Blood Count Auto Diff 02/06/25 I47.1 - Supraventricular tachycardia, E03.9 - Hypothyroidism, unspecified, E10.9 - Type 1 diabetes mellitus without complications Referrals Cardiology Referral E10.9 - Type 1 diabetes mellitus without complications, E03.9 - Hypothyroidism, unspecified, I47.1 - Supraventricular tachycardia
--- OUTSIDE RECORDS SUMMARY | 2025-02-04 19:49 | XMS_ITS | Clinical Summary ---
Author Organization [facility] Address [address] [place], [place] [address] Care Team Providers Care Shipping Technician Name Role Phone Unavailable Primary Care Provider [...] 3) 08/07/2018 06/12/2018, Bone Density Screening 07/21/2019 Advance Directive Discussion 04/16/2024 Covid-19 Vaccine (4 - 2024-2 6 season) 2024 03/07/2021, 06/28/2020, 06/07/2020 Influenza Vaccine (#1) 2024 3, 01/14/2020, 01/08/2019, Additional history exists RSV Vaccine (1 - 1-dose 75+ series) 2029 Insurance
--- OUTSIDE RECORDS SUMMARY | 2025-02-04 19:49 | XMS_ITS | Patient Health Record ---
Author Organization [facility] Address [address] [facility] [place] [address] Care Team Providers Care Carbide Operator Name Role Phone Carey MOHAMUD, Bushra Mei Primary Care Provider Un available Black, Jesusita Unavailable [phone] Allergies Allergen (clinical drug ingredient) Drug/Non Drug Allergy documented on EMR Reaction Allergy Type Onset Date Status gentamicin Gentamicin Sulfate rash Drug Allergy Active Results Component Value Reference Range Notes HEMOGLOBIN A1C (GLYCOHEMOGLO BIN) Reviewed date:11/10/2024 03:37:38 PM Interpretation: Performing Lab: Notes/Report: HEMOGLOBIN A1C % (HH) 6.7 Reason For Referral No Information Medications Medication SIG (Take, Route, Frequency, Duration) Notes Start Date End Date Status Extra Depth Orthopedic Shoes (1 Pair) with Customized Heat Molded Multidensity Innersoles (3 Pair) as directed Dx: NIDDM (E11.9), Hammertoe Foot Deformity (M20.41,M20.42), Preulcerative Skin Lesion(s) (L85.1) 11/10/2024 Active Lecithin Not-Taking Calcium Active Fish Oil Not-Taking Fish Oil Active Vitamin C Not-Taking Vitamin C Active Caltrate 600 Not-Davey ing Levothyroxine Sodium Active Lutein Active Pravastatin Sodium 80 MG 1 tablet Orally Once a day; Duration: 30 day(s) Active Vitamin E Not-Taking Lantus Active Lantus Not-Taking HumaLOG Active Levothyroxine Sodium 50 MCG as directed Orally Once a day Not-Taking Vicodin 5-300 MG 1-2 tablet as needed Orally every 6 hrs; Duration: 5 days 01/27/2014 Not-Taking Magnesium Active Synthroid 25 MCG Orally Not -Taking Vitamin D Active Capsaicin Not-Taking One A Day Women 50 Plus Active Immunizations Vaccine Route Administration Date Status Comme nts Influenza Unknown 01/22/2017 Administered Influenza Unknown 01/14/2023 Administered Influenza Unknown 01/15/2024 Administered Social History Tobacco Use: Social History Observation Description Date Details (start date - stop date) Never Smoker NA - NA Alcohol Screen Question Answer Notes Did you have a drink contain ing alcohol in the past year? Yes How often did you have a dri nk containing alcohol in the past year? 4 or more times a week (4 points) Points 4 Interpretation Positive Tobacco use other than smoking: Question Answer Notes Are you an other tobacco user? No Tobacco Control (Standard) Question Answer Notes Tobacco use: Nonsmoker AUDIT-C (Standard) Question Answer Notes Did you have a drink containing alcohol in the p ast year? No Points 0 Interpretation Negative Problems Problem Type SNOMED Code ICD Code Onset Dates Problem Status W/U Status Risk Notes Problem Acquired hammer toe of right foot (8093741465926309 ) Other hammer toe(s) (acquired), right foot (M20.41) Active confirmed Problem Acquired hammer toe of left foot (9031235093669006 ) Other hammer toe(s) (acquired), left foot (M20.42) Active confirmed Problem Type II diabetes mellitus without complication (512955767) Type 2 diabetes mellitus without complications (E11.9) Active confirmed Problem Osteoarthritis of midtarsal joint of left foot (8615072073105276 ) Osteoarthritis of midtarsal joint of left foot (M19.072) Active confirmed Vital Signs Blood pressure diastolic 70 mm Hg 11/10/2024 Height 5ft7in in 11/10/2024 Blood pressure systolic 110 mm Hg 11/10/2024 Weight 170 lbs 11/10/2024 BMI 26.62 kg/m2 11/10/2024 Encounters Encounter Location Date Provider Diagnosis [facility] [address] [place] [address] 11/10/2024 Jesusita Black Osteoarthritis of midtarsal joint of left foot M19.072 ; Other hammer toe(s) (acquired), right foot M20.41 ; Pain in left foot M79.672 ; Pain in left ankle and joints of left foot M25.572 ; Bursitis of left foot M77.52 ; Type 2 diabetes mellitus without complications E11.9 ; Other hammer toe(s) (acquired), left foot M20.42 ; Metatarsalgia of left foot M77.42 ; Bunionette of left foot M21.622 and Bunionette of right foot M21.621 Assessments Encounter Date Diagnosis (ICD Code) Assessment Notes Treatment Notes Treatment Clinical Notes Section Notes 11/10/2024 Other hammer toe(s) (acquired), right foot (ICD-10 - M20.41) Patient Educated with: DIABETIC FOOT CARE INSTRUCTIONS. pdf (DIABETIC FOOT CARE INSTRUCTIONS. pdf) 11/10/2024 Osteoarthritis of midtarsal joint of left foot (ICD-10 - M19.072) 11/10/2024 Pain in left foot (ICD-10 - M79.672) 11/10/2024 Pain in left ankle and joints of left foot (ICD-10 - M25.572) 11/10/2024 Bursitis of left foot (ICD-10 - M77.52) 11/10/2024 Type 2 diabetes mellitus without complications (ICD-10 - E11.9) 11/10/2024 Other hammer toe(s) (acquired), left foot (ICD-10 - M20.42) 11/10/2024 Metatarsalgia of left foot (ICD-10 - M77.42) 11/10/2024 Bunionette of left foot (ICD-10 - M21.622) 11/10/2024 Bunionette of right foot (ICD-10 - M21.621) Plan Of Treatment Pending Test Test Name Order Date [id number] NAIL, 6 OR MORE 12/24/2017 [id number] NAIL, 6 OR MORE 10/06/2021 [id number] NAIL, 6 OR MORE 09/24/2023 [id number] NAIL, 1-5 01/02/2014 [id number] NAIL, 1-5 01/27/2014 [id number] Plate 01/02/2014 [id number] 01/27/2014 [id number] SKIN/TISSUE 02/10/2014 [id number] SKIN LESIONS, OVER 4 12/25/19 18 Next Appt Details Provider Name:Jesusita Sandoval , 11/12/2025 01:30:00 PM, [address] [place], [address], Insurance Providers Payer Name Payer Address Payer Phone Subscriber Number Group Number Insured Name Patient Relationship to Insured Coverage Start Date Coverage End Date [employer] Medicare [id number] [address] [address] [place] [address] [id number] Mary Kay Hester Self - patient is the insured Medical (General) History Medical History History ICD Code Diabetic Diverticulitis Arthritis Measles Mumps Chicken pox Thyroid disorder Surgical History Surgery Date(Month/Year) colonoscopy 2008 right hip replacement 2019 carpal tunnel surgery 08/22/22
--- OUTSIDE RECORDS SUMMARY | 2025-02-04 19:50 | XMS_ITS | Patient Health Record ---
Author Organization [facility] Address [address] [place] [address] Care Team Providers Care Bus And Rail Operator Name Role Phone Bushra Patino MD Primary Care Provider Logan Thompson Unavailable [phone] Allergies Allergen (clinical drug ingredient) Drug/Non Drug [...] MG 1 capsule Orally Onc e a day; Duration: 30 day(s) Active Pravastatin Sodium 80 MG 1 tablet Orally Once a day; Duration: 30 day(s) Active Fish Oil 1000 MG 1 capsule Orally Onc e a day; Duration: 30 day(s) Active Calcium + D3 600-800 MG-UNIT 1 tablet with a meal Orally Once a day; Duration: 30 day(s) Active Vitamin D 1000 UNIT 1 tablet Orally Once a day; Duration: 30 day(s) Active Lutein 20 MG 1 capsule with a milo l Orally Once a day; Duration: 30 day(s) Active Vitamin E 400 UNIT 1 capsule Orally Onc e a day; Duration: 30 day(s) Active Aspirin Adult Low Dose 81 MG 1 tablet Orally Once a day; Duration: 30 day(s) Active Lantus 100 UNIT/ML as directed/13 units Subcutaneous as directed Active NovoLOG 100 UNIT/ML as directed Subcutan eous as needed Active Levothyroxine Sodium 50 MCG 1 tablet on an empty stomach in the morning Orally Once a day; Duration: 30 day(s) Active Social History Tobacco Use: [...] Problem Status W/U Status Risk Notes Problem Screening for malignant neoplasm of colon (208904002) Encounter for screening for malignant neoplasm of colon (Z12.11) Active confirmed Problem Preprocedural examination (184245124219939) Preprocedural examination (Z01.818) Active confirmed Problem Long-term current use of antiplatelet drug (335160702404935) Long-term use of aspirin therapy (Z79.82) Active confirmed Plan Of Treatment Future Test Test Name Order Date COLONOSCOPY 08/29/2018 Insurance Providers Payer Name Payer Address Payer Phone Subscriber Number Group Number Insured Name Patient Relationship to Insured Coverage Start Date Coverage End Date [facility] [address] [place], [place] [id number] [phone] [id number] DEJESUS Self - patient is the insured Medical (General) History Medical History History ICD Code IDDM Denies MD,CVA,Lung disease,renal disease Neg screening colonoscopy in 09/2008 Hypothyroidism Hyperlipidemia Arthritis right hip--may be having an ev entual hip replacement Surgical History Surgery Date(Month/Year) Rhinoplasty Eyelid lift
--- OUTSIDE RECORDS SUMMARY | 2025-02-04 19:51 | XMS_ITS | Encounter Summary ---
Author Organization [facility] Address [address] [facility] [address] [place] [address] Phone Care Team Providers Care Kitchen Hand Name Role Phone Tracey Bermeo NP Unavailable Unavailable Sandra Gilmore NP Unavailable Bushra Patino MD Unavailable Luz Elena Grijalva MD Unavailable [phone] Bushra Patino MD Primary Care Provider Reason for Referral * Physical Therapy (Elective) - Closed Specialty Diagnoses / Procedures Referred By Joel tucker Referred To Contact Physical Therapy Diagnoses Encounter for rehabilitation Tracey Vasquez NP Phone: tel: [address] [address] Phone: tel: Referral ID Status Reason Start Date Expiration Date Visits Re quested Visits Authorized [id number] Closed 03/05/2019 04/15/2019 16 16 Encounter Details Date Type Department Care Team (Latest Contact Info) Description 03/05/2019 Transcribe Orders [facility] [address] [place] [address] Tracey Vasquez NP [address] [address] Encounter for rehabilitation (Primary Dx) Social History Tobacco Use Types Packs/Day Years Used Date Smoking Tobacco: Never Smokeless Tobacco: Never Comments Unknown Sex and Gender Information Value Date Recorded Sex Assigned at Female 07/17/2019 2:10 PM EDT Legal Sex Female 9:56 PM EDT Gender Identity Female 07/17/2019 2:10 PM EDT Sexual Orientation Not on file documented as of this encounter Plan of Treatment Upcoming Encounters Date Type Department Care Team (Late st Contact Info) Description 01/26/2026 11:00 AM EDT Office Visit [facility] [address] [place] [address] Luz Elena Grijalva MD [address] [address] [email or web address] Scheduled Referrals Name Type Priority Associated Diagnoses Orde r Schedule Ambulatory referral to [facility] Physical Therapy Outpatient Referral Routine Encounter for rehabilitation Ordered: 03/05/2019 documented as of this encounter Visit Diagnoses Diagnosis Encounter for rehabilitation- Primary documented in this encounter Care Teams Kitchen Hand Relationship Specialty Start Date End Date Bushra Patino MD [address] [facility] [place] [address] PCP - General 04/19/17 Tracey Bermeo NP [address] [place] [address] Historical LMR Provider 01/29/1702/14/21 Sandra Gilmore NP [address] [place] [address] Historical LMR Provider 01/29/1702/14 Bushra Patino MD [address] [facility] [place] [address] Historical LMR Provider 01/29/17 Luz Elena Grijalva MD [address] [facility], [address] [place] [address] Historical LMR Provider 01/29/17 documented as of this encounter Additional Source Comments The information contained in this document represents components of the legal health record. It is not the complete legal health record.[facility]
== END 2025-02-04 14:51 | disposition home or self-care (01) ==
LOC: HO.HMCC 13:48
PROVIDERS: PCP Internal Medicine; Visit Provider Internal Medicine
DX: I47.10 Supraventricular tachycardia, unspecified (principal); E03.9 Hypothyroidism, unspecified; E10.9 Type 1 diabetes mellitus without complications

== ENCOUNTER → 2025-02-04 13:47 | Outpatient (BNVA) | payer MEDICARE, SELFPAY | PROVIDERS: PCP Internal Medicine; Visit Provider Internal Medicine | DX: E10.9 Type 1 diabetes mellitus without complications (principal); E03.9 Hypothyroidism, unspecified; E78.5 Hyperlipidemia, unspecified; I47.10 Supraventricular tachycardia, unspecified | CPT/HCPCS: 99212 ==

== ENCOUNTER 2025-02-06 09:29 | Outpatient (REF) | payer MEDICARE, SELFPAY ==
[2025-02-06 09:43] LABS: MANUAL DIFF FLAG NO
--- OUTSIDE RECORDS SUMMARY | 2025-02-06 10:30 | XMS_ITS | Patient Health Record ---
Author Organization [facility] Address [address] [facility] [place] [address] Care Team Providers Care Wheel Assembler Name Role Phone Carey MOHAMUD, Bushra Mei Primary Care Provider Un available Black, Jesusita Unavailable [phone] Allergies Allergen (clinical drug ingredient) Drug/Non Drug Allergy documented on EMR Reaction Allergy Type Onset Date Status Information temporarily unavailable Gentamicin Sulfate rash Drug Allergy Active Results [...] Problem Status W/U Status Risk Notes Problem Information temporarily unavailable Other hammer toe(s) (acquired), right foot (M20.41) Active confirmed Problem Information temporarily unavailable Other hammer toe(s) (acquired), left foot (M20.42) Active confirmed Problem Information temporarily unavailable Type 2 diabetes mellitus without complications (E11.9) Active confirmed Problem Information temporarily unavailable Osteoarthritis of midtarsal joint of left foot (M19.072) Active confirmed Vital Signs Blood pressure diastolic 70 mm Hg 11/10/2024 Height 5ft7in in 11/10/2024 Blood pressure systolic 110 mm Hg 11/10/2024 Weight 170 lbs 11/10/2024 BMI 26.62 kg/m2 11/10/2024 Encounters Encounter Location Date Provider Diagnosis [facility] [place] [address] [place] [address] 11/10/2024 Jesusita Black Osteoarthritis of midtarsal joint [...] Treatment Pending Test Test Name Order Date [id number] NAIL, 6 OR MORE 12/24/2017 [id number] NAIL, 6 OR MORE 10/06/2021 [id number] NAIL, 6 OR MORE 09/24/2023 [id number] NAIL, 1-5 01/02/2014 [id number] NAIL, 1-5 01/27/2014 [id number] Plate 01/02/2014 [id number] 01/27/2014 [id number] SKIN/TISSUE 02/10/2014 [id number] SKIN LESIONS, OVER 4 12/25/19 18 Next Appt Details Provider Name:Jesusita Sandoval , 11/12/2025 01:30:00 PM, [address] [place], [address], Insurance Providers Payer Name Payer Address Payer Phone Subscriber Number Group Number Insured Name Patient Relationship to Insured Coverage Start Date Coverage End Date [employer] Medicare [id number] [address] [address] [place] [address] [id number] Mary Kay Hester Self - patient is the insured Medical (General) History Medical History History ICD Code Diabetic Diverticulitis Arthritis Measles Mumps Chicken pox Thyroid disorder Surgical History Surgery Date(Month/Year) colonoscopy 2008 right hip replacement 2019 carpal tunnel surgery 08/22/22
--- OUTSIDE RECORDS SUMMARY | 2025-02-06 10:30 | XMS_ITS | Clinical Summary ---
Author Organization [facility] Address [address] [facility] [address] [place] [address] Phone Care Team Providers Care Procurement Cost Coordinator Name Role Phone Bushra Patino MD Unavailable Luz Elena Grijalva MD Unavailable [phone] Bushra Patino MD Primary Care Provider [...] acids 1,000 mg Cap as directed Orally Active CALCIUM CARBONATE/VITAMI N D3 (CALCIUM 600 + D,3, ORAL) Act landen multivit/folic acid/vit K1 (ONE-A-DAY WOMEN'S 50 PLUS ORAL) 08/18/19 22 Active cholecalciferol (VITAMIN D3) 400 unit tablet Take 25 mcg by mouth daily. 04/04/20 22 Active ACCU-CHEK GUIDE GLUCOSE METER Misc meterIndications :Type 1 diabetes mellitus without complication by Miscellaneous route daily. Use as directed to self monitor glucose 6-8 times daily E10.9 1 each 03/15/20 23 Active LANTUS SOLOSTAR U-100 INSULIN 100 unit/mL (3 mL) InPn injection penIndications:T ype 1 diabetes mellitus with hyperglycemia INJECT SUBCUTANEOUSLY 14 TO 18 UNITS DAILY AT BEDTIME 30 mL 2 11/18/19 25 Active HUMALOG KWIKPEN INSULIN 100 unit/mL kwikpenIndicatio ns:Type 1 diabetes mellitus without complication INJECT SUBCUTANEOUSLY 10 UNITS 3 TIMES DAILY BEFORE MEALS 30 mL 2 12/06/19 25 Active aspirin 81 mg Tab Take 81 mg by mouth daily. Active ACCU-CHEK GUIDE TEST STRIPS Strp stripsIndication s:Type 1 diabetes mellitus without complications MONITOR BLOOD SUGAR 8 TIMES DAILY 750 strip 3 01/21/20 25 Active dilTIAZem (CARDIZEM) 30 MG immediate release tablet Take 1 tablet (30 mg total) by mouth once as needed (heart racing). 4 tablet 01/25/20 25 Active ACCU-CHEK GUIDE TEST STRIPS Strp stripsIndication s:Type 1 diabetes mellitus without complication MONITOR BLOOD SUGAR 8 TIMES DAILY 800 strip 2 06/04/19 25 025 Discontin ued(Reord er) Active Problems Problem Noted Date Diagnosed Date Acquired hypothyroidism 02/10/2019 Assessment & Plan (01/20/2025 1:19 PM EDT): Continues on LT4 therapy Managed by PCP Most recent TSH from October, was in target range on current LT4 dosage Symptomatically well on current dose Assessment & Plan (01/22/2024 1:18 PM EDT): [...] early March Type 1 diabetes mellitus without complications 1 Overview (01/22/2024): Diabetes History Dx: type 1 diabetes, dx May 2007 Assessment & Plan (01/20/2025 1:25 PM EDT): Continues to have very good overall control, but continues to have variable glucose patterns with a larger than desired proportion in low range Continues with frequent self monitoring of glucose, hypoglycemia frequency has been above goal historically, we revisited CGM technology again, advised to contact me if she would like to try a sample sensor, we discussed sharing capability and that return visits for tech uploads would not be required We did not adjust insulin doses today, there are times when Mary Kay overdoses insulin due to more persistent elevations or is surprised that an appropriate meal dose results in a low, in general she is doing a wonderful job with her self management Mary Kay is encouraged to continue to stay active as tolerated, she has been doing well with this, and to continue healthy eating Mary Kay has questions about GLP medication therapy and how this can affect glucose management in type 1 diabetes specifically, we discussed weight based criteria for coverage of this, Mary Kay does not meet these criteria, we had a lengthy discussion about the potential role of this class in diabetes in general Continues on moderate intensity statin therapy Blood pressure remains in excellent control Mary Kay is advised to call with any questions or concerns, we will follow up in one year Assessment & Plan (01/22/2024 1:21 PM EDT): [...] insulin doses today, there are times when Mray Kay overdoses insulin due to more persistent [...] 1 diabetes mellitus 07/2017 Assessment & Plan (01/20/2025 1:20 PM EDT): Continues to have fairly frequent/variable hypoglycemia anne late in the night, Mary Kay treats these appropriately and self monitors frequently to ensure response is adequate Would benefit from CGM and we revisited this again today, she will take a look at the latest technology, Dexcom G7 and Freestyle Bandar 3, and let me know if she'd like to try a sample after her return from upcoming travel Assessment & Plan (01/22/2024 1:18 PM EDT): [...] from CGM however remains uninterested in this Encounters Date Type Department Care Team Description 01/24/2025 2:23 PM EDT - 01/24/2025 3:48 PM EDT Emergency [facility] [address] [place] [address] Jean Quintanilla MD Discharge Disposition: Home or Self Care 01/20/2025 11:00 AM EDT Office Visit [facility] [address] [place] [address] Luz Elena Grijalva MD Hypoglycemia due to type 1 diabetes mellitus (Primary Dx); Type 1 diabetes mellitus without complications; Acquired hypothyroidism 12/05/2024 Refill [facility] [address] [place] [address] Luz Elena Grijalva MD Medication Refill 12/02/2024 1:04 PM EDT - 12/02/2024 11:59 PM EDT Hospital Encounter [facility] [address] [place] [address] Luz Elena Grijalva MD Discharge Disposition: Home or Self Care 11/16/2024 Refill [facility] [address] [place] [address] Luz Elena Grijalva MD Medication Refill from Last 3 Months Immunizations Immunization Administration Dates Next Due INFLUENZA, SPLIT VIRUS, TRIVALENT PF 01/22/2017 Influenza Quadrivalent Adjuv anted Preservative Free IM 01/23/2021 Influenza Quadrivalent Preservative Free IM 12/16,01/04/2017,01/20/2016 Influenza Quadrivalent w/ Preservative IM 2018 Pneumococcal conjugate PCV13 04/14/2016 Pneumococcal polysaccharide PPSV23 [...] with a working camera? Not on file Intimate Partner Violence Answer Date R ecorded Are you denied basic needs s uch as food, clothing, or medical care? No 01/24/2025 In the past 12 months have y ou been in a relationship with a person who hurts, threatens, or tries to control you? No 01/24/2025 Are you denied basic needs s uch as food, clothing, or medical care? No 01/24/2025 In the past 12 months have y ou been in a relationship with a person who hurts, threatens, or tries to control you? No 01/24/2025 Comments Unknown Sex and Gender Information Value Date Recorded Sex Assigned at Female 07/17/2019 2:10 PM EDT Legal Sex Female 9:56 PM EDT Gender Identity Female 07/17/2019 2:10 PM EDT Sexual Orientation Not on file Last Filed Vital Signs Vital Sign Reading Time Taken Comments Blood Pressure 115/62 01/24/2025 3:30 PM EDT Pulse 79 01/24/2025 3:30 PM EDT Temperature 36.9 C (98.4 F) 01/24/2025 2:16 PM EDT Respiratory Rate 19 01/24/2025 3:30 PM EDT Oxygen Saturation 99% 01/24/2025 3:30 PM EDT Inhaled Oxygen Concentration - - Weight 77.1 kg (170 lb) 01/24/2025 2:16 PM EDT Height 170.2 cm (5' 7 ) 01/24/2025 2:16 PM EDT Body Mass Index 26.63 01/24/2025 2:16 PM EDT Plan of Treatment Upcoming Encounters Date Type Department Care Team (Late st Contact Info) Description 01/26/2026 11:00 AM EDT Office Visit [facility] [address] [place] [phone] Luz Elena Grijalva MD [address] [place] [address], [address] [place] [address] [email or web address] Health Maintenance Due Date Last Done Comments DEPRESSION SCREENING 1966 HEPATITIS C SCREENING 1972 MAMMOGRAM 1994 COLOGUARD 07/21/1999 COLONOSCOPY 07/21/1999 COLORECTAL CANCER SCREENING 07/21/1999 FIT TEST 07/21/1999 FOBT 07/21/1999 SIGMOIDOSCOPY 07/21/1999 VIRTUAL COLONOSCOPY 07/21/1999 RSV VACCINE (1 - Risk 50-74 years 1-dose series) 2004 OSTEOPOROSIS SCREENING INITIAL (ONE-TIME) 07/21/2019 DIABETIC EYE EXAM 01/18/2022 01/18/2021, , 09/26/2018 TSH LEVEL 06/12/2024 06/12/2023 INFLUENZA VACCINE (#1) 2024 , 01/08/2019, 01/09/2018, Additional history exists COVID-19 VACCINE ( season) 2024 10/24/2021 HEMOGLOBIN A1C 06/04/2025 12/02/2024, 07/16, 04/19/2024, Additional history exists BLOOD PRESSURE 07/21/2025 01/20/2025 URINE MICROALBUMIN/CREATININE RATIO 12/02/2025 12/02/2024, 10/11/2023 Adult Td,Tdap Booster 04/24/2028 04/24/2018 , 04/21/2018, 01/15/2008 ZOSTER VACCINES Completed 08/29/2018, 05/18, 05/22/2018, Additional history exists PNEUMOCOCCAL VACCINES (50+ years) Completed 09/20/2021, 04/14/2016 SMOKING STATUS SCREENING (Once After 26 Yrs) Completed 01/20/2025 HEPATITIS A VACCINES Aged Out No long [...] Procedure Name Priority Date/Time Associated Diagnosis Comments ECG 12-LEAD STAT 01/24/2025 2:42 PM EDT ECG 12-LEAD STAT 01/24/2025 2:22 PM EDT MICROALBUMIN/CREATI NINE RATIO, RANDOM URINE Routine 12/02/2024 1:38 PM EDT Type 1 diabetes mellitus without complication HEMOGLOBIN A1C Routine 12/02/2024 1:29 PM EDT Type 1 diabetes mellitus without complication [facility] DIABETES EYE EXAM FOR RESULT ENTRY ONLY Routine 01/18/2021 from Last 3 Months or Most Recently Relevant to Health Maintenance Results * ECG 12-LEAD (01/24/2025 2:42 PM EDT) Only the most recent of2 resultswithin the time period is included. Ventricular Rate EKG/MIN 82 BPM [facility] Atrial Rate 82 BPM [facility] NE Interval 154 ms [facility] QRS Duration 84 ms [facility] QT Interval 370 ms [facility] QTC Interval 432 ms [facility] P [place] 70 degrees [facility] R Wave [place] -7 degrees [facility] T Wave [place] 38 degrees [facility] 01/24/2025 2:42 PM EDT 01/25/2025 8:28 AM EDT Narrative [facility] - 01/25/2025 8:28 AM EDT Normal sinus rhythm Possible Left atrial enlargement Nonspecific ST abnormality Abnormal ECG When compared with ECG of 24-Jan-2025 14:22, Vent. rate has decreased by [address] no longer depressed in Lateral leads Confirmed by Riaz Burk ([id number]) on 01/25/2025 8:28:06 AM us Jean Quintanilla MD ECG ORDERABLES Final Result [facility] * Microalbumin/creatinine ratio, random urine (12/02/2024 1:38 PM EDT) URINE MICROALBUMIN <1.2 0 - 2.3 mg/dL [facility] URINE CREATININE 129 mg/dL [facility] MICROALB/CRE RATIO NOT CALCULATED 0 - 20 mg/g Cre [facility] Comment:due to Microalbumin <1.2 Urine (Urine) 12/02/2024 1:3 8 PM EDT 12/02/2024 1:46 PM EDT us Luz Elena Grijalva MD URINE ORDERABLES Final Result [facility] [address] [place] [address] * (ABNORMAL) Hemoglobin A1c (12/02/2024 1:29 PM EDT) HEMOGLOBIN A1C 6.8(H) 4.3 - 5.8 % [facility] Blood 12/02/2024 1:29 PM EDT 12/02/2024 1:32 PM EDT us Luz Elena Grijalva MD LAB BLOOD ORDERABLES Final Resu lt [address] [address] * DIABETES EYE EXAM FOR RESULT ENTRY ONLY (01/18/2021) Pathologist [facility] HM EYE EXAM SEE SCANNED REPORT us Historical Provider HEALTH MAINTENANCE Final Result from Last 3 Months or Most Recently Relevant to Health Maintenance Insurance MEDICARE REPLACEMENT MEDICARE REPLACEMENT MEDICARE REPLACEMENT MEDICARE REPLACEMENT MEDICARE REPLACEMENT MEDICARE REPLACEMENT MEDICARE REPLACEMENT MEDICARE REPLACEMENT [facility] MEDICARE REPLACEMENT Care Teams Procurement Cost Coordinator Relationship Specialty Start Date End Date Bushra Patino MD [address] [place] [address] PCP - General 04/19/17 Bushra Patino MD [address] [place] [address] Historical LMR Provider 01/29/17 Luz Elena Grijalva MD [address] [place] [address], [address] [place] [address] [email or web address] Historical LMR Provider 01/29/17 Additional Source Comments The information contained in this document represents components of the legal health record. It is not the complete legal health record.[facility]
--- OUTSIDE RECORDS SUMMARY | 2025-02-06 10:30 | XMS_ITS | Clinical Summary ---
Author Organization [facility] Address [address] [place], [place] [id number] Care Team Providers Care Rate Examiner Name Role Phone Unavailable Primary Care Provider [...]
--- OUTSIDE RECORDS SUMMARY | 2025-02-06 10:30 | XMS_ITS | Encounter Summary ---
Author Organization [facility] Address [address] [facility] [address] [place] [address] Phone Care Team Providers Care Environmental Educator Name Role Phone Tracey Bermeo NP Unavailable Unavailable Sandra Gilmore NP Unavailable Bushra Patino MD Unavailable Luz Elena Grijalva MD Unavailable [phone] Bushra Patino MD Primary Care Provider Reason for Referral * Physical Therapy (Elective) - Closed Specialty Diagnoses / Procedures Referred By Joel tucker Referred To Contact Physical Therapy Diagnoses Encounter for rehabilitation Tracey Vasquez NP Phone: tel: [address] [address] Phone: tel: Referral ID Status Reason Start Date Expiration Date Visits Re quested Visits Authorized [id number] Closed 03/05/2019 04/15/2019 16 16 Encounter Details Date Type Department Care Team (Latest Contact Info) Description 03/05/2019 Transcribe Orders [facility] [address] [place] [address] Tracey Vasquez NP [address] [address] Encounter for rehabilitation (Primary Dx) Social History [...] Description 01/26/2026 11:00 AM EDT Office Visit [facility] [address] [place] [address] Luz Elena Grijalva MD [address] [address] [email or web address] Scheduled Referrals Name Type Priority Associated Diagnoses Orde r Schedule Ambulatory referral to [facility] Physical Therapy Outpatient Referral Routine Encounter for rehabilitation Ordered: 03/05/2019 documented as of this encounter Visit Diagnoses Diagnosis Encounter for rehabilitation- Primary documented in this encounter Care Teams Environmental Educator Relationship Specialty Start Date End Date Bushra Patino MD [address] [place] [address] PCP - General 04/19/17 Tracey Bermeo NP [address] [place] [address] Historical LMR Provider 01/29/1702/14/21 Sandar Gilmore NP [address] [place] [address] Historical LMR Provider 01/29/1702/14 Bushra Patino MD [address] [place] [address] Historical LMR Provider 01/29/17 Luz Elena Grijalva MD [address] [facility], [address] [place] [address] Historical LMR Provider 01/29/17 documented as of this encounter Additional Source Comments The information contained in this document represents components of the legal health record. It is not the complete legal health record.[facility]
--- OUTSIDE RECORDS SUMMARY | 2025-02-06 10:30 | XMS_ITS | Patient Health Record ---
Author Organization [facility] Address [address] [place] [phone] Care Team Providers Care Medical Or Surgical Instrument Maker Name Role Phone Bushra Patino MD Primary Care Provider Logna Thompson Unavailable [phone] Allergies Allergen (clinical drug ingredient) Drug/Non Drug Allergy documented on EMR Reaction Allergy Type Onset Date Status Information temporarily unavailable Gentamicin Sulfate Unknown Drug Allergy Active Information temporarily unavailable Augmentin Unknown Drug Allergy Active Reason For [...] Status Risk Notes Problem Information temporarily unavailable Encounter for screening for malignant neoplasm of colon (Z12.11) Active confirmed Problem Information temporarily unavailable Preprocedural examination (Z01.818) Active confirmed Problem Information temporarily unavailable Long-term use of aspirin therapy (Z79.82) Active confirmed Plan Of Treatment Future Test Test Name Order Date COLONOSCOPY 08/29/2018 Insurance Providers Payer Name Payer Address Payer Phone Subscriber Number Group Number Insured Name Patient Relationship to Insured Coverage Start Date Coverage End Date [facility] [address] [place], [place] [id number] THUY DEJESUS Self - patient is the insured Medical (General) History Medical History History ICD Code IDDM Denies [place],CVA,Lung disease,renal disease Neg screening colonoscopy in 09/2008 Hypothyroidism Hyperlipidemia Arthritis right hip--may be having an ev entual hip replacement Surgical History Surgery Date(Month/Year) Rhinoplasty Eyelid lift
[2025-02-06 10:49] LABS: Hematocrit 45.0 % (37.0-47.0); Hemoglobin 14.6 g/dl (12.0-16.0); Imm Gran Abs Auto 0.02 X10*3/uL (0.00-0.03); Imm Gran Pct Auto 0.3 % (0.0-0.4); Lymphocytes Absolute Auto 1.7 X10*3/uL (1.2-4.9); Mean Corpuscular HGB Conc 32.4 g/dl (31.0-35.0); Mean Corpuscular Hemoglobin 30.6 pg (27.0-33.0); Mean Corpuscular Volume 94.3 fL (80.0-98.0); NRBC Abs Auto 0.000 X10*3/uL (0.0-0.012); NRBC Pct Auto 0.0 /100WBC (0.0-0.2); Platelet Count 320 X10*3/uL (160-400); Red Blood Count 4.77 X10*6/uL (4.20-5.50); White Blood Count 6.2 X10*3/uL (4.8-10.8)
[2025-02-06 11:44] LABS: Free T4 (Free Thyroxine) 0.93 ng/dL (0.71-1.85); Thyroid Stimulating Hormone 5.73 uIU/mL (0.32-4.0)
== END 2025-02-06 09:30 | disposition home or self-care (01) ==
LOC: HO.LAB 09:29
PROVIDERS: PCP Internal Medicine; Visit Provider Internal Medicine
DX: I47.10 Supraventricular tachycardia, unspecified (principal); E03.9 Hypothyroidism, unspecified; E10.9 Type 1 diabetes mellitus without complications
CPT/HCPCS: 36415; 84439; 84443; 85025